=== PATIENT | female | born 1960 | race Native Hawaiian/Other Pacific Islander ===

== ENCOUNTER 2016-07-20 07:45 | Emergency (ER) | payer SELFPAY ==
[2016-07-20] MEDS ORDERED: HYDROmorphone 1 MG/ML 1 ML SYRINGE IVP STA ×2 (08:10→10:39)
[2016-07-20] MEDS ORDERED: ONDANSETRON 4 MG/2 ML VIAL IVP STA (08:11)
--- NOTE | 2016-07-20 08:13 | ED ---
General Adult HPI - General Chief complaint: Extremity Injury, Upper Stated complaint: POSS Fx LEFT ARM Time Seen by Provider: 07/20/16 07:50 Source: patient, RN notes reviewed Mode of arrival: wheelchair Limitations: no limitations - History of Present Illness Initial comments: This is a 56-year-old female who presents emergency Department complaining that she fell while feeding the birds and hurt her left elbow. She is unable to move with full range of motion. Patient denies any wrist or hand pain. Patient denies any shoulder pain. Patient denies any other site of injury. Patient states she was not short of breath or having chest pain or palpitations prior to her fall. - Related Data Home Medications Medication Instructions Recorded Confirmed Aspirin EC [Ecotrin Low Dose] 81 mg PO DAILY 07/20/16 07/20/16 Guaifen/Phenyleph/Acetaminophn 2 tab PO DAILY PRN 07/20/16 07/20/16 [Tylenol Sinus Severe Caplet] Loratadine [Claritin] 10 mg PO DAILY 07/20/16 07/20/16 Previous Rx's Medication Instructions Recorded Hydrocodone/Acetaminophen [[place] 1 each PO Q4HR PRN #20 tab 07/20/16 5-325] Ibuprofen [Motrin] 400 mg PO Q6HR PRN #20 tab 07/20/16 Allergies Allergy/AdvReac Type Severity Reaction Status Date / Time latex AdvReac Rash/Hives Verified 07/20/16 08:04 Review of Systems ROS Statement: Those systems with pertinent positive or pertinent negative responses have been documented in the HPI. ROS Other: All systems not noted in ROS Statement are negative. Past Medical History Past Medical History: Myocardial Infarction ([place]) History of Any Multi-Drug Resistant Organisms: None Reported Past Surgical History: Heart Catheterization With Stent Past Psychological History: No Psychological Hx Reported Smoking Status: Former smoker Past Alcohol Use History: Occasional Past Drug Use History: None Reported General Exam - General Exam Comments Initial Comments: GENERAL Patient is well-developed and well-nourished. Patient is in mild distress. EYES Patient's pupils are equal and round. Extraocular motion is intact SKIN Unremarkable NEURO The patient is alert and oriented 3 PYSCH Patient has normal interpersonal interactions. MUSCULOSKELETAL Patient's left elbow appears to be deformed and there is a void at the distal humerus indicating a possible dislocation or fracture dislocation Limitations: no limitations Course Vital Signs 07/20/16 07/20/16 07/20/16 07:49 09:00 09:26 Temperature 96.9 F L Pulse Rate 57 L 53 L 56 L Respiratory 20 15 18 Rate Blood Pressure 176/84 162/84 159/78 O2 Sat by Pulse 100 100 100 Oximetry 07/20/16 09:42 Temperature Pulse Rate 59 L Respiratory 18 Rate Blood Pressure 195/92 O2 Sat by Pulse 98 Oximetry Procedures - Orthopedic Joint Reduction Joint #1 Consent Obtained: written consent Time Out Performed: Yes Side: left Joint Reduction Location: elbow Shoulder Technique Used (if applicable): traction/counter-traction Technique Used: traction/counter-traction Post-Reduction Neuro Exam: intact Post-Reduction Vascular Exam: intact Post Reduction X-Ray Obtained: Yes Post Reduction X-Ray Results: reduced Splint Applied: No (Patient was given a sling) - Procedural Sedation Procedural Sedation Start Time: 09:34 Indications: fracture/dislocation reduction ASA Class: I Preparation: cardiac rehabilitation program director applied, pulse oximeter, capnometry used, supplemental O2 applied IV Etomidate Dose (mgs): 12 Complications: none Patient Tolerated Procedure: well Medical Decision Making - Medical Decision Making X-ray shows her elbow dislocation. After reduction x-ray showed elbow was back in place and a possible avulsion fracture in the soft tissue not in the joint. I put the patient has sling. Disposition Clinical Impression: Elbow dislocation Disposition: HOME SELF-CARE Condition: Good Instructions: Elbow Dislocation (ED) Prescriptions: Hydrocodone/Acetaminophen [[place] 5-325] 1 each PO Q4HR PRN #20 tab PRN Reason: Pain Ibuprofen [Motrin] 400 mg PO Q6HR PRN #20 tab PRN Reason: For pain Referrals: Lee Barrera DO [Primary Care Provider] - 1-2 days
--- NOTE | 2016-07-20 09:00 | XR ---
EXAMINATION TYPE: XR elbow limited LT DATE OF EXAM: 07/20/2016 8:56 AM COMPARISON: NONE HISTORY: Pain FINDINGS: There is a complete dislocation of the elbow with the humerus anteriorly displaced relative to the radius and ulna. Large soft tissue hematoma or edema noted. Tiny chip fracture involving the ulna not excluded. IMPRESSION: 1. Complete elbow dislocation.
[2016-07-20 09:27] VITALS: RESP 18
[2016-07-20] MEDS ORDERED: ETOMIDATE 2 MG/ML 10 ML VIAL IVP STA (09:29)
--- NOTE | 2016-07-20 10:04 | XR ---
EXAMINATION TYPE: XR elbow limited LT DATE OF EXAM: 07/20/2016 9:45 AM COMPARISON: 07/20/2016 earlier exam HISTORY: Dislocated radius and ulna TECHNIQUE: 2 views left elbow FINDINGS: There is soft tissue swelling over the elbow. There is a calcification along the medial elb ow not identified previously. Tiny avulsion may be present. Donor site is not identified. Radius and ulna align normally with the humerus. IMPRESSION: 1. Reduction of previous dislocation radius and ulna. 2. Soft tissue swelling. 3. Tiny avulsion within the more superficial soft tissue may be present. This is along the medial elb ow.
[2016-07-20 10:56] VITALS: BP 154/77; PULSE 78; TEMP 98.1
== END 2016-07-20 10:55 | disposition home or self-care (01) ==
LOC: EC 07:45
DX: S53.105A Unspecified dislocation of left ulnohumeral joint, initial encounter (principal); I25.2 Old myocardial infarction; Z95.5 Presence of coronary angioplasty implant and graft; Z79.82 Long term (current) use of aspirin; Z87.891 Personal history of nicotine dependence; Z91.040 Latex allergy status; Z79.899 Other long term (current) drug therapy; W18.39XA Other fall on same level, initial encounter; Y93.89 Activity, other specified
CPT/HCPCS: 99283; 24600; 96374; 96375; 96376; 73070; J2405; J1170

== ENCOUNTER 2020-08-17 09:42 | Inpatient (IN) | payer OTHER ==
--- NOTE | 2020-08-17 09:53 | ED ---
General Adult HPI - General Stated complaint: neuro sympstoms Time Seen by Provider: 08/17/20 09:46 Source: patient, EMS, RN notes reviewed Mode of arrival: EMS Limitations: no limitations - History of Present Illness Initial comments: Patient is a pleasant 60-year-old female presenting to the emergency Department with right-sided weakness. Last known well was 10 PM yesterday. Patient woke up around 8 AM this morning with symptoms. Patient had numbness on her right side. Patient was unable to walk. Patient had slurred speech. Patient feels her speech is getting much better at this time. Patient unclear if other symptoms have improved or not. No history of similar symptoms previously. No confusion. Patient does feel a little bit lightheaded. No headache. - Related Data Home Medications Medication Instructions Recorded Confirmed Aspirin EC [Ecotrin Low Dose] 81 mg PO DAILY 07/20/16 08/17/20 Metoprolol Tartrate [Lopressor] 25 mg PO BID 08/17/20 08/17/20 Allergies Allergy/AdvReac Type Severity Reaction Status Date / Time latex AdvReac Rash/Hives Verified 08/17/20 10:42 Review of Systems ROS Statement: Those systems with pertinent positive or pertinent negative responses have been documented in the HPI. ROS Other: All systems not noted in ROS Statement are negative. Constitutional: Denies: fever Eyes: Denies: eye pain ENT: Denies: ear pain Respiratory: Denies: cough Cardiovascular: Denies: chest pain Endocrine: Denies: fatigue Gastrointestinal: Denies: abdominal pain Genitourinary: Denies: urgency Musculoskeletal: Denies: back pain Skin: Denies: as per HPI Neurological: Reports: as per HPI, weakness, paresthesias. Denies: headache Past Medical History Past Medical History: Myocardial Infarction ([place]) History of Any Multi-Drug Resistant Organisms: None Reported Past Surgical History: Heart Catheterization With Stent Past Psychological History: No Psychological Hx Reported Past Alcohol Use History: Occasional Past Drug Use History: None Reported General Exam Limitations: no limitations General appearance: alert, in no apparent distress Head exam: Present: atraumatic Eye exam: Present: normal appearance, PERRL, EOMI. Absent: nystagmus ENT exam: Present: normal oropharynx Neck exam: Present: normal inspection Respiratory exam: Present: normal lung sounds bilaterally Cardiovascular Exam: Present: regular rate, normal rhythm GI/Abdominal exam: Present: soft. Absent: distended, tenderness Extremities exam: Present: normal inspection Neurological exam: Present: alert, oriented X3, CN II-XII intact Expanded Neurological exam: Present: protecting the airway Patient oriented to: Present: person, place, time Speech: Present: fluid speech Cranial nerves: EOM's Intact: Normal, Facial Sensation: Normal Cerebellar function: Finger to Nose: Abnormal Right Sensory exam: Upper Extremity Light Touch: Normal, Lower Extremity Light Touch: Normal Motor strength exam: RUE: 4, LUE: 5, RLE: 5, LLE: 5 Eye Response: (4) open spontaneously Motor Response: (6) obeys commands Verbal Response: (5) oriented Psychiatric exam: Present: normal affect, normal mood Skin exam: Present: normal color Course Vital Signs 08/17/20 08/17/20 08/17/20 09:50 09:58 10:15 Temperature 97.4 F L 97.4 F L 97.4 F L Pulse Rate 74 135 H 72 Respiratory 18 18 18 Rate Blood Pressure 193/95 193/95 191/95 O2 Sat by Pulse 95 96 96 Oximetry 08/17/20 10:30 Temperature 97.4 F L Pulse Rate 69 Respiratory 18 Rate Blood Pressure 181/103 O2 Sat by Pulse 96 Oximetry - Reevaluation(s) Reevaluation #1: 08/17/20 10:03 Code stroke was called. Case was discussed with Dr. Dewitt who agrees patient is not a TPA candidate. He feels patient is also not a thrombectomy candidate. EKG Findings - EKG Comments: EKG Findings:: Normal sinus rhythm 66. HI 142. QRS 94. QT 436. QTc 47. Normal axis. Normal QRS. No acute ST change. Medical Decision Making - Medical Decision Making Patient reevaluated and improved. Patient no longer has right upper extremity weakness however still has some difficulty with coordination. Patient and family updated on results and plan. Case was discussed in detail with Dr. Barrera who is familiar with his patient and will admit. Neurology will be placed on consult.BNP will be added - Lab Data Result diagrams: 08/17/20 09:55 08/17/20 09:55 Lab Results 08/17/20 08/17/20 08/17/20 Range/Units 09:47 09:55 09:55 WBC 7.3 (3.8-10.6) k/uL RBC 4.35 (3.80-5.40) m/uL Hgb 13.3 (11.4-16.0) gm/dL Hct 40.1 (34.0-46.0) % MCV 92.1 (80.0-100.0) fL MCH 30.6 (25.0-35.0) pg MCHC 33.3 (31.0-37.0) g/dL RDW 12.9 (11.5-15.5) % Plt Count 260 (150-450) k/uL MPV 8.7 Neutrophils % 76 % Lymphocytes % 16 % Monocytes % 3 % Eosinophils % 3 % Basophils % 1 % Neutrophils # 5.5 (1.3-7.7) k/uL Lymphocytes # 1.2 (1.0-4.8) k/uL Monocytes # 0.2 (0-1.0) k/uL Eosinophils # 0.2 (0-0.7) k/uL Basophils # 0.1 (0-0.2) k/uL PT 9.9 (9.0-12.0) sec INR 0.9 (<1.2) APTT 19.2 L (22.0-30.0) sec Sodium (137-145) mmol/L Potassium (3.5-5.1) mmol/L Chloride (98-107) mmol/L Carbon Dioxide (22-30) mmol/L Anion Gap mmol/L BUN (7-17) mg/dL Creatinine (0.52-1.04) mg/dL Est GFR (CKD-EPI)AfAm (>60 ml/min/1.73 sqM) Est GFR (CKD-EPI)NonAf (>60 ml/min/1.73 sqM) Glucose (74-99) mg/dL POC Glucose (mg/dL) 148 H (75-99) mg/dL POC Glu Implementation Project Manager ID Cristin Castañeda Calcium (8.4-10.2) mg/dL Total Bilirubin (0.2-1.3) mg/dL AST (14-36) U/L ALT (4-34) U/L Alkaline Phosphatase (38-126) U/L Troponin I (0.000-0.034) ng/mL NT-Pro-B Natriuret Pep pg/mL Total Protein (6.3-8.2) g/dL Albumin (3.5-5.0) g/dL 08/17/20 08/17/20 08/17/20 Range/Units 09:55 09:55 09:55 WBC (3.8-10.6) k/uL RBC (3.80-5.40) m/uL Hgb (11.4-16.0) gm/dL Hct (34.0-46.0) % MCV (80.0-100.0) fL MCH (25.0-35.0) pg MCHC (31.0-37.0) g/dL RDW (11.5-15.5) % Plt Count (150-450) k/uL MPV Neutrophils % % Lymphocytes % % Monocytes % % Eosinophils % % Basophils % % Neutrophils # (1.3-7.7) k/uL Lymphocytes # (1.0-4.8) k/uL Monocytes # (0-1.0) k/uL Eosinophils # (0-0.7) k/uL Basophils # (0-0.2) k/uL PT (9.0-12.0) sec INR (<1.2) APTT (22.0-30.0) sec Sodium 136 L (137-145) mmol/L Potassium 4.3 (3.5-5.1) mmol/L Chloride 102 (98-107) mmol/L Carbon Dioxide 24 (22-30) mmol/L Anion Gap 10 mmol/L BUN 14 (7-17) mg/dL Creatinine 0.80 (0.52-1.04) mg/dL Est GFR (CKD-EPI)AfAm >90 (>60 ml/min/1.73 sqM) Est GFR (CKD-EPI)NonAf 80 (>60 ml/min/1.73 sqM) Glucose 162 H (74-99) mg/dL POC Glucose (mg/dL) (75-99) mg/dL POC Glu Implementation Project Manager ID Calcium 9.6 (8.4-10.2) mg/dL Total Bilirubin 0.6 (0.2-1.3) mg/dL AST 32 (14-36) U/L ALT 18 (4-34) U/L Alkaline Phosphatase 72 (38-126) U/L Troponin I <0.012 (0.000-0.034) ng/mL NT-Pro-B Natriuret Pep 475 pg/mL Total Protein 8.0 (6.3-8.2) g/dL Albumin 4.5 (3.5-5.0) g/dL - Radiology Data Radiology results: report reviewed (Computed tomography scan the brain shows atrophy and chronic small vessel changes without acute process. CT angios chest shows no significant abnormality.), image reviewed (Two-view chest x-ray has some increased interstitial markings, possible edema.) Disposition Clinical Impression: Cerebrovascular accident (CVA) Disposition: ADMITTED IP TO THIS HOSP Is patient prescribed a controlled substance at d/c from ED?: No Referrals: Lee Barrera DO [Primary Care Provider] - 1-2 days Decision Time: 10:56
[2020-08-17 09:59] LABS: Glucose,Whole Blood 148 mg/dL (75-99)
[2020-08-17 10:01] LABS: Basophils # (A) 0.1 k/uL (0-0.2); Basophils % (A) 1 %; Eosinophils # (A) 0.2 k/uL (0-0.7); Eosinophils % (A) 3 %; HCT 40.1 % (34.0-46.0); HGB 13.3 gm/dL (11.4-16.0); Lymphocytes # (A) 1.2 k/uL (1.0-4.8); Lymphocytes % (A) 16 %; MCH 30.6 pg (25.0-35.0); MCHC 33.3 g/dL (31.0-37.0); MCV 92.1 fL (80.0-100.0); Mean Platelet Volume 8.7; Monocytes # (A) 0.2 k/uL (0-1.0); Monocytes % (A) 3 %; Neutrophils # (A) 5.5 k/uL (1.3-7.7); Neutrophils % (A) 76 %; Platelet Count 260 k/uL (150-450); RBC 4.35 m/uL (3.80-5.40); RDW 12.9 % (11.5-15.5); WBC 7.3 k/uL (3.8-10.6)
--- NOTE | 2020-08-17 10:16 | CT ---
EXAMINATION TYPE: CT brain wo con for TPA DATE OF EXAM: 08/17/2020 COMPARISON: None HISTORY: Rt sided numbness CT DLP: [address] of the brain was performed. The ventricles, basal cisterns and sulci overlying the cerebral convexities demonstrate mild enlargem ent. There is no evidence for intracranial hemorrhage or sulcal effacement. There is decreased attenuation about the periventricular white matter and deep white matter of both c erebral hemispheres, compatible with chronic small vessel ischemia. Differential diagnosis does inclu de demyelination. No mass effects are seen.No midline shift. Osseous calvarium is intact. If symptoms persist consider MRI. IMPRESSION: 1. Age related atrophic and chronic small vessel ischemic change without acute intracranial process s een at this time.
[2020-08-17 10:19] LABS: ALT 18 U/L (4-34); African American GFR (CKD) >90 (>60 ml/min/1.73 sqM); Albumin 4.5 g/dL (3.5-5.0); Anion Gap 10 mmol/L; Blood Urea Nitrogen 14 mg/dL (7-17); Calcium 9.6 mg/dL (8.4-10.2); Carbon Dioxide 24 mmol/L (22-30); Chloride 102 mmol/L (98-107); Glucose 162 mg/dL (74-99); Non-African American GFR(CKD) 80 (>60 ml/min/1.73 sqM); Sodium 136 mmol/L (137-145); Total Bilirubin 0.6 mg/dL (0.2-1.3)
[2020-08-17 10:22] LABS: INR 0.9 (<1.2); Potassium 4.3 mmol/L (3.5-5.1); Prothrombin Time 9.9 sec (9.0-12.0)
[2020-08-17 10:23] LABS: AST 32 U/L (14-36); Alkaline Phosphatase 72 U/L (38-126)
--- NOTE | 2020-08-17 10:23 | XR ---
EXAMINATION TYPE: XR chest 2V DATE OF EXAM: 08/17/2020 COMPARISON: none HISTORY: Shortness of breath TECHNIQUE: Frontal and lateral views of the chest are obtained. FINDINGS: Scattered senescent parenchymal changes noted. Hyperinflation compatible with COPD. there is pulmonary venous congestion and interstitial edema noted. No evidence for focal consolidatio n. Heart size is stable. Mediastinal structures are stable and grossly unremarkable. No evidence for hilar prominence. Degenerative changes dorsal spine. IMPRESSION: 1. there is pulmonary venous congestion and interstitial edema noted.
[2020-08-17 10:29] LABS: Partial Thromboplastin Time 19.2 sec (22.0-30.0)
--- NOTE | 2020-08-17 10:36 | CT ---
EXAMINATION TYPE: CT angio head neck DATE OF EXAM: 08/17/2020 COMPARISON: none HISTORY: right side numbness CT DLP: 351.2 mGycm CONTRAST: Performed with IV Contrast, patient injected with 65 mL of Isovue 370. Combination Contrast CTA cervical carotids and [place] CTA cervical carotids with 3-D recons truction Contrast CTA of the cervical carotids was performed 3-D reconstruction imaging obtained at a separate workstation. Right carotid system: Mild plaque is seen of the right common carotid artery. There is mild plaque a lso noted at the carotid bulb and proximal ICA. No significant diameter reduction. ECA is patent. Right vertebral artery appears unremarkable. Left carotid system: Mild plaque is seen of the left common carotid artery. There is mild plaque als o noted at the carotid bulb and proximal ICA. Estimated diameter reduction of 50%. ECA is patent. L eft vertebral artery appears unremarkable. IMPRESSION: 1. No hemodynamically significant stenosis identified. CTA [place] with 3-D reconstruction Contrast CTA of the [place] was performed 3-D reconstruction imaging obtained at a separate workstation. Vertebrobasilar system as well as intracranial portions of the internal carotid arteries and their ma lucius tributaries are patent. I do not see evidence for sizable aneurysm or vascular malformation. Pl ease note MRI provides greater sensitivity and specificity. Visualized brain appears grossly unremar kable. IMPRESSION: 1. No significant abnormality.
[2020-08-17] MEDS ORDERED: ASPIRIN 325 MG TAB PO STA (10:56)
[2020-08-17] MEDS ORDERED: ONDANSETRON 4 MG/2 ML VIAL IVP STA (11:01)
[2020-08-17] MEDS: SODIUM CHLORIDE 0.9% 1,000 ML IV SCH ×2 (12:14→21:14)
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
[2020-08-17] MEDS: CLOPIDOGREL 75 MG TAB PO SCH (17:19)
--- NOTE | 2020-08-17 19:44 | MR ---
MRI OF THE BRAIN WO History: Acute stroke with left-sided weakness. COMPARISON: Same-day CT. TECHNIQUE: Multiplanar multisequence MR imaging of the brain was obtained without the use of IV cont rast. FINDINGS: There is moderate area of restricted diffusion in the right cerebellar.No acute intracranial hemorrha ge or abnormal extra-axial fluid collection are noted.There is no midline shift or mass effect. There is moderate white matter T2 FLAIR hyperintensities, in keeping with chronic microvascular ischemic c hanges. Visualized vascular flow voids are unremarkable. Visualized paranasal sinuses and mastoid air cells are patent and aerated. IMPRESSION: Acute/subacute right cerebellar ischemic infarct. Chronic microvascular ischemic changes. I was unable to reach caring team by phone at the time of dictation. However information will be rela jw to team by the technologist.
[2020-08-17] MEDS: METOPROLOL TARTRATE 25 MG TAB PO SCH (21:14)
[2020-08-18 02:37] LABS: Cholesterol 289 mg/dL (<200); HDL Cholesterol 74 mg/dL (40-60); LDL Cholesterol,Calculated 143 mg/dL (0-99); Triglycerides 360 mg/dL (<150)
[2020-08-18] MEDS ORDERED: ONDANSETRON 4 MG/2 ML VIAL IVP PRN (06:29)
--- NOTE | 2020-08-18 07:30 | ECHOF ---
Referral Reason:Thrombus MEASUREMENTS -------- HEIGHT: 162.6 cm WEIGHT: 68.0 kg BP: 197/98 RVIDd: 2.7 cm (< 3.3) IVSd: 1.5 cm (0.6 - 1.1) LVIDd: 4.6 cm (3.9 - 5.3) LVPWd: 1.2 cm (0.6 - 1.1) IVSs: 1.7 cm LVIDs: 2.8 cm LVPWs: 1.9 cm LAESV Index (A-L): 52.90 ml/m Ao Diam: 2.2 cm (2.0 - 3.7) AV Cusp: 1.6 cm (1.5 - 2.6) MV EXCURSION: 17.874 mm (> 18.000) MV EF SLOPE: 128 mm/s (70 - 150) EPSS: 0.2 cm MV E Fabio: 1.47 m/s MV DecT: 153 ms MV A Fabio: 0.77 m/s MV E/A Ratio: 1.90 RAP: 20.00 mmHg RVSP: 70.87 mmHg FINDINGS -------- Sinus rhythm. This was a technically adequate study. The left ventricular size is normal. There is moderate concentric left ventricular hypertrophy. O verall left ventricular systolic function is normal with, an EF between 55 - 60 %. The right ventricle is normal in size. LA is severely dilated >40 ml/m2 The right atrial size is normal. Interatrial and interventricular septum intact. The aortic valve is trileaflet, and appears structurally normal. No aortic stenosis or regurgitation. The mitral valve leaflets are mildly thickened. Mgenzrhr-kd-xvfelw mitral regurgitation is present. Moderate to severe tricuspid regurgitation present. There is severe pulmonary hypertension. The r ight ventricular systolic pressure, as measured by Doppler, is 70.87mmHg. There is no pulmonic regurgitation present. The aortic root size is normal. The inferior vena cava is dilated with poor inspiratory collapse which is consistent with estimated r ight atrial pressure of 20 mmHg. There is no pericardial effusion. CONCLUSIONS -------- 1. There is moderate concentric left ventricular hypertrophy. 2. Overall left ventricular systolic function is normal with, an EF between 55 - 60 %. 3. LA is severely dilated >40 ml/m2 4. The aortic valve is trileaflet, and appears structurally normal. No aortic stenosis or regurgitati on. 5. Qleqzdvg-ks-tjxyak mitral regurgitation is present. 6. Moderate to severe tricuspid regurgitation present. 7. There is severe pulmonary hypertension. 8. The inferior vena cava is dilated with poor inspiratory collapse which is consistent with estimate d right atrial pressure of 20 mmHg. ASBESTOS SHINGLE ROOFER: Amanda Mabry RDCS
[2020-08-18] MEDS: SODIUM CHLORIDE 0.9% 1,000 ML IV SCH ×2 (07:49→17:18)
[2020-08-18] MEDS: ASPIRIN 325 MG TAB PO SCH (09:40)
[2020-08-18] MEDS: CLOPIDOGREL 75 MG TAB PO SCH (09:40)
[2020-08-18] MEDS: METOPROLOL TARTRATE 25 MG TAB PO SCH ×2 (09:40→18:59)
[2020-08-18] MEDS: PANTOPRAZOLE 40 MG/10 ML VIAL IVP SCH (10:43)
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
[2020-08-18] MEDS: amLODIPine 5 MG TAB PO SCH (12:08)
--- NOTE | 2020-08-18 12:09 | CONS ---
INÉS Frias is a 60-year-old lady with history of coronary artery disease, status post prior angioplasty in the setting of a myocardial infarction 9 years ago who does not see a sand shoveler regularly, comes into the hospital having had CVA. She states that she developed right-sided weakness around 9:30 yesterday. She also had slurred speech and had ability to walk. She came into hospital and was admitted to hospital for the same and has gradually gotten better. The speech is better. The weakness has improved. She had a CTA of the head and neck that is negative for carotid stenosis. Had a CT scan of the brain that did not reveal any acute intracranial processes. Her EKG shows that she is in sinus rhythm. Coronavirus is negative. Blood pressure is slightly poorly controlled. I have been consulted to perform a transesophageal echo. I discuss risks, benefits for SAM. She understands and is in agreement with the plans. PAST MEDICAL HISTORY: Significant for coronary artery disease, status post angioplasty. MEDICATIONS: Medications include aspirin and metoprolol 25 b.i.d. ALLERGIES: Allergic to LATEX. FAMILY HISTORY: Significant for coronary artery disease and valvular heart disease. SOCIAL HISTORY: Negative for smoking, EtOH abuse, or drug abuse. REVIEW OF SYSTEMS: HEENT is unremarkable. CARDIAC: As described above. RESPIRATORY: As described above. GI: Negative. GENITOURINARY: Negative. ALLERGY/IMMUNOLOGY: Negative. SKIN: Negative. MUSCULOSKELETAL: Significant for arthritis. PSYCHOSOCIAL: Negative. ENDOCRINE: Negative. DERM: Negative. CONSTITUTIONAL: Negative. ONCOLOGICAL: Negative. BRAKE REPAIRER HYDRAULIC: Significant for right-sided weakness. Rest of the system review is not relevant. PHYSICAL EXAMINATION: On exam, afebrile, heart rate is 67 beats per minute, blood pressure is 160/86, respiratory rate is 18, O2 saturation is 97% on room air. There is no jugular venous distention. Carotid upstroke is normal. There is no bruit. Chest exam reveals good air entry bilaterally. Heart exam reveals first and second heart sounds. No gallop. No murmur. No rub. Abdomen is soft, nontender. Examination of extremities did not reveal any edema. Peripheral pulses are felt. BRAKE REPAIRER HYDRAULIC exam shows mild right-sided weakness. An echocardiogram on this admission revealed normal LV systolic function with an ejection fraction of 55% to 60%, moderate to severe mitral regurgitation, moderate to severe tricuspid regurgitation with pulmonary hypertension. Lipid profile shows a total cholesterol of 289, LDL is 143, HDL is 74. ASSESSMENT: 1. Cerebrovascular accident, rule out cardiac source for thromboembolic phenomenon. 2. Coronary artery disease, status post angioplasty. 3. Pulmonary hypertension. PLAN: I am going to perform a transesophageal echo tomorrow to rule out cardiac source of thromboembolic phenomenon. The patient had an MRI that shows right cerebellar infarct. The patient has known CAD, but is currently free of any cardiac symptoms. The exact etiology for pulmonary hypertension is unclear. She did not have any respiratory symptoms prior to this. I will see what I find on the SAM and if necessary I will repeat RV systolic pressures on her before investigating the pulmonary hypertension further. MMODL / IJN: [id number] /
[2020-08-18 12:14] LABS: Glucose,Whole Blood 133 mg/dL (75-99)
[2020-08-18] MEDS: INSULIN ASPART (NovoLOG) 100 UNIT/ML VIAL SQ SCH ×3 (12:20→21:24)
[2020-08-18 13:38] LABS: Hemoglobin A1C 5.6 % (4.0-6.0)
[2020-08-18 17:04] LABS: Glucose,Whole Blood 106 mg/dL (75-99)
[2020-08-18] MEDS ORDERED: METOPROLOL TARTRATE 50 MG TAB PO STA (17:42)
--- NOTE | 2020-08-18 18:26 | P.PN ---
Subjective Progress Note Date: 08/18/20 Patient states she is feeling much better. Denies any headache. Right-sided incoordination has improved. Denies double vision, loss of vision. Patient's significant other was also present, who feels patient is doing better. Speech has improved. Speech therapy has cleared the patient. Objective - Vital Signs Vital signs: Vital Signs Temp 97.6 F 08/18/20 16:00 Pulse 70 08/18/20 16:00 Resp 16 08/18/20 16:00 BP 167/80 08/18/20 16:00 Pulse Ox 98 08/18/20 16:00 Intake & Output 08/17/20 08/18/20 08/18/20 18:59 06:59 18:59 Intake Total 0 1795 Output Total 480 Balance 0 -480 1795 Weight 68.039 kg 72 kg Intake: Intake, IV Titration 1600 Amount Sodium Chloride 0.9% 1, 1600 000 ml @ 100 mls/hr IV . Q10H VEE Rx#:[id number] Oral 0 195 Output: Urine 480 Other: Voiding Method Bedside Commode # Voids 1 1 - Exam Patient's mental status, speech and language functions are normal. No obvious dysarthria. Cranial nerves are normal. Patient has mild right pronation. Patient is ataxic for culrpy-ks-[id number] on the right, but no ataxia for bspy-wr-ekft testing. Sensations are equal. - Labs CBC & Chem 7: 08/17/20 09:55 08/17/20 09:55 Labs: Abnormal Lab Results - Last 24 Hours (Table) 08/17/20 08/18/20 08/18/20 Range/Units 09:55 12:13 17:02 POC Glucose (mg/dL) 133 H 106 H (75-99) mg/dL Triglycerides 360 H (<150) mg/dL Cholesterol 289 H (<200) mg/dL LDL Cholesterol, Calc 143 H (0-99) mg/dL HDL Cholesterol 74 H (40-60) mg/dL Assessment and Plan Assessment: * Acute right cerebellar ischemic stroke. Rule out embolic source. * Hypertension * Left ICA stenosis 50% per CTA * Hyperlipidemia Plan: * Patient is improving gradually as compared to yesterday. * MRI of the brain revealed acute to subacute right cerebellar ischemic infarct. Chronic microvascular ischemic changes. * 2-D echo showed EF 55-60%. Left atrium is severely dilated. Moderate to severe MR, moderate to severe TR. Severe pulmonary hypertension. Patient will undergo SAM for further evaluation of cardioembolic source. * Continue dual antiplatelet medications for now. * Fasting a.m. lipid panel with cholesterol 289, LDL 143, HDL 74 and triglycerides 360. Start Lipitor 40 mg daily. * Hemoglobin A1c 5.6. * Optimize control of blood pressure at this time. * Telemetry monitoring so far showing sinus rhythm with no other arrhythmia.
[2020-08-18] MEDS: DILTIAZEM 125 MG in SODIUM CHLORIDE 0.9% 100 ML IV SCH (20:44)
[2020-08-18] MEDS: ATORVASTATIN 40 MG TAB PO SCH (20:44)
[2020-08-18 21:01] LABS: Glucose,Whole Blood 127 mg/dL (75-99)
[2020-08-19 06:10] LABS: Glucose,Whole Blood 109 mg/dL (75-99)
[2020-08-19] MEDS: SODIUM CHLORIDE 0.9% 1,000 ML IV SCH ×2 (06:47→15:48)
[2020-08-19] MEDS: INSULIN ASPART (NovoLOG) 100 UNIT/ML VIAL SQ SCH ×4 (06:47→19:54)
[2020-08-19] MEDS: amLODIPine 5 MG TAB PO SCH (07:59)
[2020-08-19] MEDS: METOPROLOL TARTRATE 25 MG TAB PO SCH ×2 (07:59→19:52)
[2020-08-19] MEDS: ASPIRIN 325 MG TAB PO SCH (07:59)
[2020-08-19] MEDS: PANTOPRAZOLE 40 MG/10 ML VIAL IVP SCH (07:59)
[2020-08-19] MEDS: CLOPIDOGREL 75 MG TAB PO SCH (08:00)
[2020-08-19] MEDS ORDERED: HEPARIN SODIUM,PORCINE 5,000 UNIT/ML 1 ML VIAL IV PRN (08:20)
[2020-08-19] MEDS ORDERED: HEPARIN SODIUM,PORCINE 5,000 UNIT/ML 1 ML VIAL IV ONE (08:20)
[2020-08-19] MEDS ORDERED: METOPROLOL TARTRATE 25 MG TAB PO STA (09:26)
[2020-08-19] MEDS: HEPARIN SOD,PORK IN 0.45% NACL 25,000 UNIT in 0.45% NACL 1 250ML.BAG IV SCH (09:49)
[2020-08-19 10:37] LABS: Basophils % (A) 1 %; Eosinophils # (A) 0.1 k/uL (0-0.7); Eosinophils % (A) 1 %; HCT 40.9 % (34.0-46.0); HGB 13.1 gm/dL (11.4-16.0); Lymphocytes # (A) 1.1 k/uL (1.0-4.8); Lymphocytes % (A) 19 %; MCH 29.9 pg (25.0-35.0); MCV 93.6 fL (80.0-100.0); Mean Platelet Volume 9.3; Monocytes # (A) 0.3 k/uL (0-1.0); Monocytes % (A) 5 %; Neutrophils # (A) 4.3 k/uL (1.3-7.7); Neutrophils % (A) 72 %; Platelet Count 234 k/uL (150-450); RBC 4.37 m/uL (3.80-5.40); RDW 13.4 % (11.5-15.5)
[2020-08-19 10:44] LABS: INR 0.9 (<1.2); Partial Thromboplastin Time 22.4 sec (22.0-30.0); Prothrombin Time 10.1 sec (9.0-12.0)
[2020-08-19 10:49] LABS: African American GFR (CKD) >90 (>60 ml/min/1.73 sqM); Anion Gap 8 mmol/L; Blood Urea Nitrogen 6 mg/dL (7-17); Calcium 9.4 mg/dL (8.4-10.2); Carbon Dioxide 30 mmol/L (22-30); Chloride 98 mmol/L (98-107); Glucose 114 mg/dL (74-99); Non-African American GFR(CKD) 85 (>60 ml/min/1.73 sqM); Sodium 136 mmol/L (137-145)
[2020-08-19] MEDS: DILTIAZEM 125 MG in SODIUM CHLORIDE 0.9% 100 ML IV SCH (11:03)
[2020-08-19 11:59] LABS: Potassium 3.5 mmol/L (3.5-5.1)
[2020-08-19 12:03] LABS: Glucose,Whole Blood 88 mg/dL (75-99)
--- NOTE | 2020-08-19 14:14 | P.PN ---
Subjective Progress Note Date: 08/19/20 Chief Complaint: Slurred speech, right-sided weakness This is a 60-year-old female with past medical history of CAD with cardiac stents, [place], hypertension, osteoarthritis, presented to the ER with slurred speech, right-sided weakness involving upper extremity more than lower extremity with right facial droop, tongue numbness, dizziness/head spinning/vertigo accompanied by nausea and vomiting upon awakening. Denies abdominal pain . Denies incontinence .On arrival to the ER, patient had uncontrolled blood pressure with systolic 193/95. Brain CT reported chronic small vessel ischemic change with no acute intracranial process, CTA of head neck reported no hemodynamic significant stenosis identified ( Left ICA 50% stenosis), no significant abnormality, EKG reported normal sinus rhythm troponin negative, triglycerides 360, cholesterol 289, LDL 143, HDL 74, echo reported moderate concentric left ventricular hypertrophy, normal LV function with EF 55-60%, severely dilated LA, moderate to severe mitral regurgitation, moderate to severe tricuspid regurgitation, severe pulmonary hypertension, brain MRI reported acute/subacute right cerebellar ischemic infarct, no acute intracranial hemorrhage, no midline shift, no mass, chronic microvascular ischemic changes. Afebrile, unremarkable hematology panel, a PTT 19.2, PT/INR within normal limits, chemistry unremarkable with the exception of mildly decreased sodium 136, glucose 162. Wolfe virus not detected. Denies chest pain palpitations or shortness of breath.Received aspirin in the ER, Patient was beyond the window fo r TPA treatment. Reports her speech and right lower extremity weakness improving. 08/19/2020 maintained on dual antiplatelet tx with both aspirin and Plavix, symptoms improving. Reports right leg appears a "little delayed" when preparing to walk, right hand dexterity a little slow, noted with texting. Yesterday afternoon, developed symptomatic atrial fibrillation with fast ventricular rate heart rate, up into the 130s, placed on Cardizem drip. Patient reported palpitations, states she had this sensation previously. SAM canceled per cardiology. Objective - Vital Signs Vital signs: Vital Signs Temp 97.4 F L 08/19/20 07:58 Pulse 118 H 08/19/20 07:58 Resp 16 08/19/20 07:58 BP 146/82 08/19/20 07:58 Pulse Ox 97 08/19/20 07:58 Intake & Output 08/18/20 08/19/20 08/19/20 18:59 06:59 18:59 Intake Total 1795 186.583 Balance 1795 186.583 Weight 71 kg Intake: Intake, IV Titration 1600 71.583 Amount Diltiazem 125 mg In 71.583 Sodium Chloride 0.9% 100 ml @ 5 MG/HR 5 mls/hr IV .Q24H VEE Rx#:[id number] Sodium Chloride 0.9% 1, 1600 000 ml @ 100 mls/hr IV . Q10H VEE Rx#:[id number] Oral 195 115 Other: Voiding Method Bedside Commode # Voids 1 1 # Bowel Movements 0 - Exam PHYSICAL EXAM: VITAL SIGNS: [As above] GENERAL: Sitting up in bed, no acute distress HEENT: Conjunctivae normal. eyes normal. Speech fluent, appropriate. NECK: No JVD. No thyroid enlargement. No LNs CARDIOVASCULAR: S1, S2 regular.. No murmur RESPIRATION: Breath sounds diminished in the bases. No rhonchi or crackles. No bronchial breathing. ABDOMEN: Soft, nontender . No guarding. no masses palpable. No ascites, No hepatosplenomegaly.Bowel sounds heard. LEGS: No edema. no swelling PSYCHIATRY: Alert and oriented X3, mood and affect normal. NERVOUS SYSTEM: Cranial N 2-12 grossly normal. Moves all 4 limbs. right finger to nose testing remains ataxic ,No focal deficits. Strength and sensation grossly intact. Skin: Warm and dry, no rash Lymphatic system. No LN neck axilla. 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 fib with fast ventricular rate Vertigo Hypertension Hyperlipidemia CAD with history of [place] and cardiac stents Left ICA stenosis 50% Moderate concentric left ventricular hypertrophy, EF 55-60% Severely dilated LA Moderate to severe mitral regurgitation Moderate to severe tricuspid regurgitation Severe pulmonary hypertension Osteoarthritis Plan: Continue on current medication regime ,monitoring and symptomatic treatment. SAM /Cardiology discussing with neurology switching aspirin, Plavix, to heparin drip. Antiarrhythmics as per cardiology. Continue on statin. PT/OT.Follow closely with neurology. Discharge planning in progress possibly for tomorrow, pending final DC recommendations and clearance from both cardiology and neurology. The impression and plan of care has been dictated as directed. : I performed a history and examination of this patient, discussed the same with the dictator. I agree with the dictator's note ,documented as a scribe. Any additional findings or plans will be noted.
--- NOTE | 2020-08-19 15:12 | P.PN ---
Subjective Progress Note Date: 08/19/20 HISTORY OF PRESENT ILLNESS: 60-year-old female admitted to the hospital secondary to CVA. Patient was scheduled for SAM today. However, patient went into A. fib with RVR yesterday. Patient does not have a history of atrial fibrillation. She was started on IV Cardizem. Patient's heart rate remains uncontrolled this morning in the 120s. She denies chest pain or pressure. She denies shortness of breath. Echocardiogram completed revealing ejection fraction 55-60%, moderate to severe mitral regurgitation, moderate to severe tricuspid regurgitation, and severe pulmonary hypertension. PHYSICAL EXAM: VITAL SIGNS: Reviewed. GENERAL: Well-developed in no acute distress. NECK: Supple. No JVD or thyromegaly LUNGS: Respirations even and unlabored. Lungs essentially clear to auscultation bilaterally. HEART: Tachycardic. Irregular rate and rhythm. S1 and S2 heard. EXTREMITIES: No clubbing or cyanosis. Peripheral pulses intact. No lower extremity edema ASSESSMENT: Acute CVA Paroxysmal atrial fibrillation with RVR Coronary artery disease with previous PCI Valvular heart disease Severe pulmonary retention PLAN: Increase metoprolol to 75 mg twice a day Wean off Cardizem drip Continue telemetry monitoring Case discussed with neurology. Okay to discontinue Plavix and begin anticoagulation. Will begin IV heparin Notified by case management the patient does not have insurance and co-pay for [employer] will be $500. Will begin Coumadin with pharmacy to dose. Continue IV heparin until INR therapeutic Further recommendations pending patient's course Nurse practitioner note has been reviewed by physician. Signing provider agrees with the documented findings, assessment, and plan of care. Objective - Vital Signs Vital signs: Vital Signs Temp 97.4 F L 08/19/20 07:58 Pulse 81 08/19/20 12:00 Resp 16 08/19/20 12:00 BP 147/89 08/19/20 12:00 Pulse Ox 98 08/19/20 12:00 Intake & Output 08/18/20 08/19/20 08/19/20 18:59 06:59 18:59 Intake Total 1795 186.583 Balance 1795 186.583 Weight 71 kg Intake: Intake, IV Titration 1600 71.583 Amount Diltiazem 125 mg In 71.583 Sodium Chloride 0.9% 100 ml @ 5 MG/HR 5 mls/hr IV .Q24H VEE Rx#:[id number] Sodium Chloride 0.9% 1, 1600 000 ml @ 100 mls/hr IV . Q10H VEE Rx#:[id number] Oral 195 115 Other: Voiding Method Bedside Commode # Voids 1 1 # Bowel Movements 0 - Labs CBC & Chem 7: 08/19/20 09:17 08/19/20 09:17 Labs: Abnormal Lab Results - Last 24 Hours (Table) 08/18/20 08/18/20 08/19/20 Range/Units 17:02 20:58 06:03 Sodium (137-145) mmol/L BUN (7-17) mg/dL Glucose (74-99) mg/dL POC Glucose (mg/dL) 106 H 127 H 109 H (75-99) mg/dL 08/19/20 Range/Units 09:17 Sodium 136 L (137-145) mmol/L BUN 6 L (7-17) mg/dL Glucose 114 H (74-99) mg/dL POC Glucose (mg/dL) (75-99) mg/dL
--- NOTE | 2020-08-19 17:44 | P.PN ---
Subjective Progress Note Date: 08/19/20 Patient appears much better, even better than yesterday. Patient is sitting on the side of the bed, putting her makeup on. Patient's significant other was also present. Patient states that she is walking better, although using the walker. She still has mild slurred speech. No symptoms with the vision, or left side. Still some incoordination with the right arm. Speech therapy has cleared the patient for swallow, although patient would need speech therapy twice a week. Objective - Vital Signs Vital signs: Vital Signs Temp 97.3 F L 08/19/20 15:53 Pulse 109 H 08/19/20 15:53 Resp 16 08/19/20 15:53 BP 179/102 08/19/20 15:53 Pulse Ox 96 08/19/20 15:53 Intake & Output 08/18/20 08/19/20 08/19/20 18:59 06:59 18:59 Intake Total 1795 426.583 Balance 1795 426.583 Weight 71 kg Intake: Intake, IV Titration 1600 71.583 Amount Diltiazem 125 mg In 71.583 Sodium Chloride 0.9% 100 ml @ 5 MG/HR 5 mls/hr IV .Q24H VEE Rx#:[id number] Sodium Chloride 0.9% 1, 1600 000 ml @ 100 mls/hr IV . Q10H VEE Rx#:[id number] Oral 195 355 Other: Voiding Method Bedside Commode # Voids 1 1 # Bowel Movements 0 - Exam Patient's mental status is normal. Patient has mild dysarthria, which was also observed yesterday as well, although in the note states "No obvious dysarthria", (need correction). Cranial nerves are normal. Patient has mild right pronation. Patient is ataxic for [id number] on the right, but no ataxia for nvyy-kh-oorg testing. Sensations are equal. - Labs CBC & Chem 7: 08/19/20 09:17 08/19/20 09:17 Labs: Abnormal Lab Results - Last 24 Hours (Table) 08/18/20 08/19/20 08/19/20 Range/Units 20:58 06:03 09:17 APTT (22.0-30.0) sec Sodium 136 L (137-145) mmol/L BUN 6 L (7-17) mg/dL Glucose 114 H (74-99) mg/dL POC Glucose (mg/dL) 127 H 109 H (75-99) mg/dL 08/19/20 Range/Units 15:30 APTT 54.3 H (22.0-30.0) sec Sodium (137-145) mmol/L BUN (7-17) mg/dL Glucose (74-99) mg/dL POC Glucose (mg/dL) (75-99) mg/dL Assessment and Plan Assessment: * Acute right cerebellar ischemic stroke. Most likely cardio embolic source. * Patient developed atrial fibrillation last night. * Hypertension * Left ICA stenosis 50% per CTA * Hyperlipidemia Plan: * Patient is improving gradually as compared to yesterday. Still has some dysarthria, and ataxia for ahlmyf-zy-xmcj testing on the right. * MRI of the brain revealed acute to subacute right cerebellar ischemic infarct. Chronic microvascular ischemic changes. * 2-D echo showed EF 55-60%. Left atrium is severely dilated. Moderate to severe MR, moderate to severe TR. Severe pulmonary hypertension. As patient has developed new onset atrial fibrillation overnight, therefore SAM was canceled. I'm not sure if SAM is still indicated to evaluate for valvular abnormalities noted above in the transthoracic echocardiogram. * Plavix discontinued, patient started on heparin IV. PTT is 54.3. Patient pro bably will be started on oral anticoagulants from the morning. * Fasting a.m. lipid panel with cholesterol 289, LDL 143, HDL 74 and triglycerides 360. Start Lipitor 40 mg daily. * Hemoglobin A1c 5.6. * Optimize control of blood pressure at this time.
[2020-08-19] MEDS ORDERED: WARFARIN 5 MG TAB PO ONE (18:00)
[2020-08-19] MEDS: ATORVASTATIN 40 MG TAB PO SCH (19:51)
[2020-08-20] MEDS: SODIUM CHLORIDE 0.9% 1,000 ML IV SCH ×3 (02:18→21:16)
[2020-08-20 04:33] LABS: Basophils # (A) 0.1 k/uL (0-0.2); Basophils % (A) 1 %; Eosinophils # (A) 0.2 k/uL (0-0.7); Eosinophils % (A) 3 %; HCT 34.2 % (34.0-46.0); HGB 11.2 gm/dL (11.4-16.0); Lymphocytes # (A) 1.2 k/uL (1.0-4.8); Lymphocytes % (A) 20 %; MCH 30.8 pg (25.0-35.0); MCHC 32.7 g/dL (31.0-37.0); MCV 94.2 fL (80.0-100.0); Mean Platelet Volume 8.9; Monocytes # (A) 0.3 k/uL (0-1.0); Monocytes % (A) 5 %; Neutrophils % (A) 70 %; Platelet Count 211 k/uL (150-450); RBC 3.63 m/uL (3.80-5.40); WBC 5.7 k/uL (3.8-10.6)
[2020-08-20 04:59] LABS: INR 1.1 (<1.2); Partial Thromboplastin Time 87.1 sec (22.0-30.0); Prothrombin Time 11.2 sec (9.0-12.0)
[2020-08-20] MEDS: INSULIN ASPART (NovoLOG) 100 UNIT/ML VIAL SQ SCH ×4 (06:13→19:31)
[2020-08-20] MEDS: HEPARIN SOD,PORK IN 0.45% NACL 25,000 UNIT in 0.45% NACL 1 250ML.BAG IV SCH (09:18)
[2020-08-20] MEDS: ASPIRIN 325 MG TAB PO SCH (09:21)
[2020-08-20] MEDS: amLODIPine 5 MG TAB PO SCH (09:21)
[2020-08-20] MEDS: METOPROLOL TARTRATE 25 MG TAB PO SCH ×2 (09:22→21:04)
[2020-08-20] MEDS: PANTOPRAZOLE 40 MG/10 ML VIAL IVP SCH (09:22)
--- NOTE | 2020-08-20 12:07 | P.PN ---
Subjective Progress Note Date: 08/20/20 HISTORY OF PRESENT ILLNESS: 08/19/2020 60-year-old female admitted to the hospital secondary to CVA. Patient was scheduled for SAM today. However, patient went into A. fib with RVR yesterday. Patient does not have a history of atrial fibrillation. She was started on IV Cardizem. Patient's heart rate remains uncontrolled this morning in the 120s. She denies chest pain or pressure. She denies shortness of breath. Echocardiogram completed revealing ejection fraction 55-60%, moderate to severe mitral regurgitation, moderate to severe tricuspid regurgitation, and severe pul monary hypertension. 08/20/2020 Patient examined this morning at the bedside. Patient has converted to sinus rhythm. Heart rate in the 70s. Blood pressure 134/74. She denies chest pain or pressure. Denies shortness of breath. She remains on IV heparin. She was started on Coumadin yesterday. INR 1.1 today. PHYSICAL EXAM: VITAL SIGNS: Reviewed. GENERAL: Well-developed in no acute distress. NECK: Supple. No JVD or thyromegaly LUNGS: Respirations even and unlabored. Lungs essentially clear to auscultation bilaterally. HEART: Regular rate and rhythm. S1 and S2 heard. EXTREMITIES: No clubbing or cyanosis. Peripheral pulses intact. No lower extremity edema ASSESSMENT: Acute CVA Paroxysmal atrial fibrillation with RVR, currently maintaining sinus mechanism Coronary artery disease with previous PCI Valvular heart disease Severe pulmonary retention PLAN: Continue current cardiac medications Continue Coumadin. Monitor INR. Continue IV heparin until INR therapeutic Patient may be discharged home today from a cardiac perspective. Recommend bridging with Lovenox at discharge. Nurse practitioner note has been reviewed by physician. Signing provider agrees with the documented findings, assessment, and plan of care. Objective - Vital Signs Vital signs: Vital Signs Temp 97.7 F 08/20/20 10:00 Pulse 71 08/20/20 10:00 Resp 16 08/20/20 10:00 BP 134/74 08/20/20 10:00 Pulse Ox 98 08/20/20 10:00 Intake & Output 08/19/20 08/20/20 08/20/20 18:59 06:59 18:59 Intake Total 1026.583 175.181 276.494 Balance 1026.583 175.181 276.494 Weight 65.5 kg Intake: Intake, IV Titration 71.583 175.181 36.494 Amount Diltiazem 125 mg In 71.583 Sodium Chloride 0.9% 100 ml @ 5 MG/HR 5 mls/hr IV .Q24H VEE Rx#:[id number] Heparin Sod,Pork in 0.45% 175.181 36.494 NaCl 25,000 unit In 0.45 % NaCl 1 250ml.bag @ 12 UNITS/KG/HR 8.52 mls/hr IV .Q24H VEE Rx#: [id number] Oral 955 240 Other: Voiding Method Bedside Commode # Voids 2 2 1 # Bowel Movements 0 - Labs CBC & Chem 7: 08/20/20 03:50 08/19/20 09:17 Labs: Abnormal Lab Results - Last 24 Hours (Table) 08/19/20 08/19/20 08/20/20 Range/Units 15:30 19:01 03:50 RBC 3.63 L (3.80-5.40) m/uL Hgb 11.2 L (11.4-16.0) gm/dL APTT 54.3 H 43.4 H (22.0-30.0) sec 08/20/20 Range/Units 03:50 RBC (3.80-5.40) m/uL Hgb (11.4-16.0) gm/dL APTT 87.1 H (22.0-30.0) sec
--- NOTE | 2020-08-20 13:20 | P.PN ---
Subjective Progress Note Date: 08/20/20 Chief Complaint: Slurred speech, right-sided weakness This is a 60-year-old female with past medical history of CAD with cardiac stents, ND, hypertension, osteoarthritis, presented to the ER with slurred speech, right-sided weakness involving upper extremity more than lower extremity with right facial droop, tongue numbness, dizziness/head spinning/vertigo accompanied by nausea and vomiting upon awakening. Denies abdominal pain . Denies incontinence .On arrival to the ER, patient had uncontrolled blood pressure with systolic 193/95. Brain CT reported chronic small vessel ischemic change with no acute intracranial process, CTA of head neck reported no hemodynamic significant stenosis identified ( Left ICA 50% stenosis), no significant abnormality, EKG reported normal sinus rhythm troponin negative, triglycerides 360, cholesterol 289, LDL 143, HDL 74, echo reported moderate concentric left ventricular hypertrophy, normal LV function with EF 55-60%, severely dilated LA, moderate to severe mitral regurgitation, moderate to severe tricuspid regurgitation, severe pulmonary hypertension, brain MRI reported acute/subacute right cerebellar ischemic infarct, no acute intracranial hemorrhage, no midline shift, no mass, chronic microvascular ischemic changes. Afebrile, unremarkable hematology panel, a PTT 19.2, PT/INR within normal limits, chemistry unremarkable with the exception of mildly decreased sodium 136, glucose 162. Wolfe virus not detected. Denies chest pain palpitations or shortness of breath.Received aspirin in the ER, Patient was beyond the window fo r TPA treatment. Reports her speech and right lower extremity weakness improving. 08/19/2020 maintained on dual antiplatelet tx with both aspirin and Plavix, symptoms improving. Reports right leg appears a "little delayed" when preparing to walk, right hand dexterity a little slow, noted with texting. Yesterday afternoon, developed symptomatic atrial fibrillation with fast ventricular rate heart rate, up into the 130s, placed on Cardizem drip. Patient reported palpitations, states she had this sensation previously. SAM canceled per cardiology. 08/20/2020 Converted to sinus rhythm at 2134 yesterday. Telemetry sinus rhythm with occasional PVCs, minimal ectopy. Case management/social work assisting patient with obtaining Medicaid/Medicare as patient currently has no insurance. Continues to improve. Working with speech therapy. Anticoagulated on heparin drip. Ambulating with walker as right leg still feels delayed despite positive motor strength. Denies chest pain, palpitations or shortness of breath. Objective - Vital Signs Vital signs: Vital Signs Temp 97.6 F 08/20/20 04:00 Pulse 79 08/20/20 04:00 Resp 16 08/20/20 04:00 BP 161/65 08/20/20 04:00 Pulse Ox 98 08/20/20 04:00 Intake & Output 08/19/20 08/20/20 08/20/20 18:59 06:59 18:59 Intake Total 1026.583 175.181 Balance 1026.583 175.181 Weight 65.5 kg Intake: Intake, IV Titration 71.583 175.181 Amount Diltiazem 125 mg In 71.583 Sodium Chloride 0.9% 100 ml @ 5 MG/HR 5 mls/hr IV .Q24H VEE Rx#:[id number] Heparin Sod,Pork in 0.45% 175.181 NaCl 25,000 unit In 0.45 % NaCl 1 250ml.bag @ 12 UNITS/KG/HR 8.52 mls/hr IV .Q24H VEE Rx#: [id number] Oral 955 Other: Voiding Method Bedside Commode # Voids 2 2 # Bowel Movements 0 - Exam PHYSICAL EXAM: VITAL SIGNS: [As above] GENERAL: Alert and oriented 3, Sitting up at side of bed,NAD HEENT: Conjunctivae normal. eyes normal. Speech fluent, appropriate. NECK: No JVD. No LNs CARDIOVASCULAR: S1, S2 regular.No murmur RESPIRATION: Breath sounds CTA, diminished in the bases. ABDOMEN: Soft, nondistended, nontender . No guarding. no masses palpable.Positive bowel sounds. LEGS: No edema. no swelling. NERVOUS SYSTEM: Cranial N 2-12 grossly normal. Moves all 4 limbs. Now able to perform right finger to nose-not ataxic. No focal deficits. Strength and sensation grossly intact. Skin: Warm and dry, no rash - Labs CBC & Chem 7: 08/20/20 03:50 08/19/20 09:17 Labs: Abnormal Lab Results - Last 24 Hours (Table) 08/19/20 08/19/20 08/19/20 Range/Units 09:17 15:30 19:01 RBC (3.80-5.40) m/uL Hgb (11.4-16.0) gm/dL APTT 54.3 H 43.4 H (22.0-30.0) sec Sodium 136 L (137-145) mmol/L BUN 6 L (7-17) mg/dL Glucose 114 H (74-99) mg/dL 08/20/20 08/20/20 Range/Units 03:50 03:50 RBC 3.63 L (3.80-5.40) m/uL Hgb 11.2 L (11.4-16.0) gm/dL APTT 87.1 H (22.0-30.0) sec Sodium (137-145) mmol/L BUN (7-17) mg/dL Glucose (74-99) mg/dL Assessment and Plan Assessment: Acute ischemic right cerebellar CVA with mild right hemiparesis, secondary to A. fib with fast ventricular rate Vertigo Hypertension Hyperlipidemia CAD with history of ND and cardiac stents Left ICA stenosis 50% Moderate concentric left ventricular hypertrophy, EF 55-60% Severely dilated LA Moderate to severe mitral regurgitation Moderate to severe tricuspid regurgitation Severe pulmonary hypertension Osteoarthritis Plan: Continue on current medication regime , statin, monitoring and symptomatic treatment. Antiarrhythmics/anticoagulation as per cardiology. Speech therapy. PT/OT. Follow closely with neurology. Discharge planning in progress possibly for tomorrow, pending final DC recommendations and clearance from both cardiology and neurology. At discharge patient will require walker for safety secondary to right foot " delay", prevent falls. Case management/social work assisting patient in arranging temporary Medicaid, Medicare/indigent funds as she currently has no insurance. The impression and plan of care has been dictated as directed. : I performed a history and examination of this patient, discussed the same with the dictator. I agree with the dictator's note ,documented as a scribe. Any additional findings or plans will be noted.
[2020-08-20] MEDS ORDERED: WARFARIN 5 MG TAB PO ONE (18:00)
--- NOTE | 2020-08-20 19:54 | P.PN ---
Subjective Progress Note Date: 08/20/20 Patient states she is feeling better than yesterday. Her speech is much more clear, had undergone recent speech therapy session. Her right arm ataxia also has improved. No new focal symptoms. Patient denies any headache. Telemetry monitoring showing sinus rhythm at this time. Patient had atrial fibrillation last night, which converted to sinus rhythm at 9:34 PM. Objective - Vital Signs Vital signs: Vital Signs Temp 97.2 F L 08/20/20 16:12 Pulse 66 08/20/20 16:12 Resp 16 08/20/20 16:12 BP 152/84 08/20/20 16:12 Pulse Ox 98 08/20/20 16:12 Intake & Output 08/20/20 08/20/20 08/21/20 06:59 18:59 06:59 Intake Total 175.181 734.494 Balance 175.181 734.494 Weight 65.5 kg Intake: Intake, IV Titration 175.181 36.494 Amount Heparin Sod,Pork in 0.45% 175.181 36.494 NaCl 25,000 unit In 0.45 % NaCl 1 250ml.bag @ 12 UNITS/KG/HR 8.52 mls/hr IV .Q24H VEE Rx#: [id number] Oral 698 Other: Voiding Method Bedside Commode Toilet Bedside Commode # Voids 2 1 - Exam Patient's mental status is normal. Patient has mild dysarthria, stable. Cranial nerves are normal. Patient has mild right pronation. Patient's right arm ataxia has improved. No ataxia in the lower limbs. Sensations are equal. Gait deferred. - Labs CBC & Chem 7: 08/20/20 03:50 08/19/20 09:17 Labs: Abnormal Lab Results - Last 24 Hours (Table) 08/19/20 08/20/20 08/20/20 Range/Units 19:01 03:50 03:50 RBC 3.63 L (3.80-5.40) m/uL Hgb 11.2 L (11.4-16.0) gm/dL APTT 43.4 H 87.1 H (22.0-30.0) sec 08/20/20 Range/Units 10:56 RBC (3.80-5.40) m/uL Hgb (11.4-16.0) gm/dL APTT 63.1 H (22.0-30.0) sec Assessment and Plan Assessment: * Acute right cerebellar ischemic stroke. Most likely cardio embolic source. * Patient developed atrial fibrillation last night. * Hypertension * Left ICA stenosis 50% per CTA * Hyperlipidemia Plan: * Patient is improving gradually as compared to yesterday. Still has some dysarthria, and ataxia for [id number] testing on the right. Continue speech therapy and physical therapy. * MRI of the brain revealed acute to subacute right cerebellar ischemic infarct. Chronic microvascular ischemic changes. * 2-D echo showed EF 55-60%. Left atrium is severely dilated. Moderate to severe MR, moderate to severe TR. Severe pulmonary hypertension. As patient has developed new onset atrial fibrillation overnight, therefore SAM was canceled. I'm not sure if SAM is still indicated to evaluate for valvular abnormalities noted above in the transthoracic echocardiogram. * Patient currently started on heparin drip. Patient also on Coumadin, INR is subtherapeutic 1.1 at this time. Target INR 2-3. PTT 63.1. * Fasting a.m. lipid panel with cholesterol 289, LDL 143, HDL 74 and triglycerides 360. Start Lipitor 40 mg daily. * Hemoglobin A1c 5.6. * Blood pressure 152/84. Optimize control of blood pressure at this time.
[2020-08-20] MEDS: ATORVASTATIN 40 MG TAB PO SCH (21:04)
[2020-08-20 23:20] VITALS: TEMP 97.6
[2020-08-21] MEDS: SODIUM CHLORIDE 0.9% 1,000 ML IV SCH (06:08)
[2020-08-21] MEDS: INSULIN ASPART (NovoLOG) 100 UNIT/ML VIAL SQ SCH ×2 (06:09→11:12)
[2020-08-21 07:57] LABS: Basophils # (A) 0.1 k/uL (0-0.2); Basophils % (A) 1 %; Eosinophils # (A) 0.4 k/uL (0-0.7); Eosinophils % (A) 5 %; HGB 13.3 gm/dL (11.4-16.0); Lymphocytes % (A) 14 %; MCH 30.9 pg (25.0-35.0); MCHC 33.2 g/dL (31.0-37.0); MCV 92.9 fL (80.0-100.0); Mean Platelet Volume 8.5; Monocytes # (A) 0.3 k/uL (0-1.0); Monocytes % (A) 5 %; Neutrophils # (A) 5.4 k/uL (1.3-7.7); Neutrophils % (A) 74 %; Platelet Count 238 k/uL (150-450); WBC 7.3 k/uL (3.8-10.6)
[2020-08-21 08:10] LABS: Partial Thromboplastin Time 52.4 sec (22.0-30.0); Prothrombin Time 10.7 sec (9.0-12.0)
[2020-08-21] MEDS: HEPARIN SOD,PORK IN 0.45% NACL 25,000 UNIT in 0.45% NACL 1 250ML.BAG IV SCH (09:38)
[2020-08-21] MEDS: ASPIRIN 325 MG TAB PO SCH (09:39)
[2020-08-21] MEDS: amLODIPine 5 MG TAB PO SCH (09:39)
[2020-08-21] MEDS: METOPROLOL TARTRATE 25 MG TAB PO SCH (09:39)
[2020-08-21] MEDS: PANTOPRAZOLE 40 MG/10 ML VIAL IVP SCH (09:40)
--- NOTE | 2020-08-21 10:22 | P.DS ---
Providers Date of admission: 08/17/20 10:51 Expected date of discharge: 08/21/20 Attending physician: Lee Barrera Consults: 08/17/20 10:57 Consult Physician Urgent Consulting Provider: Ruchi Nunn Consult Reason/Comments: cva Do you want consulting provider notified?: Yes 08/18/20 10:48 Consult Physician Routine Consulting Provider: Karthik Francisco Consult Reason/Comments: SAM for CVA Do you want consulting provider notified?: Already Contacted Primary care physician: Lee Barrera Hospital Course: Final Diagnoses: Acute ischemic right cerebellar CVA with mild right hemiparesis, secondary to A. fib with fast ventricular rate, currently sinus rhythm Hypertension Hyperlipidemia CAD with history of MS and cardiac stents Left ICA stenosis 50% Moderate concentric left ventricular hypertrophy, EF 55-60% Severely dilated LA Moderate to severe mitral regurgitation Moderate to severe tricuspid regurgitation Severe pulmonary hypertension Osteoarthritis Hemoglobin A1c 5.6 Hospital course:This is a 60-year-old female with past medical history of CAD with cardiac stents, MS, hypertension, osteoarthritis, presented to the ER with slurred speech, right-sided weakness involving upper extremity more than lower extremity with right facial droop, tongue numbness, dizziness/head spinning/vertigo accompanied by nausea and vomiting upon awakening. Denies abdominal pain . Denies incontinence .On arrival to the ER, patient had uncontrolled blood pressure with systolic 193/95. Brain CT reported chronic small vessel ischemic change with no acute intracranial process, CTA of head neck reported no hemodynamic significant stenosis identified ( Left ICA 50% stenosis), no significant abnormality, EKG reported normal sinus rhythm troponin negative, triglycerides 360, cholesterol 289, LDL 143, HDL 74, echo reported moderate concentric left ventricular hypertrophy, normal LV function with EF 55- 60%, severely dilated LA, moderate to severe mitral regurgitation, moderate to severe tricuspid regurgitation, severe pulmonary hypertension, brain MRI reported acute/subacute right cerebellar ischemic infarct, no acute intracranial hemorrhage, no midline shift, no mass, chronic microvascular ischemic changes. Afebrile, unremarkable hematology panel, a PTT 19.2, PT/INR within normal limits, chemistry unremarkable with the exception of mildly decreased sodium 136, glucose 162. Wolfe virus not detected. Denies chest pain palpitations or shortness of breath.Received aspirin in the ER, Patient was beyond the window for TPA treatment. Reports her speech and right lower extremity weakness improving. 08/19/2020 maintained on dual antiplatelet tx with both aspirin and Plavix, symptoms improving. Reports right leg appears a "little delayed" when preparing to walk, right hand dexterity a little slow, noted with texting. Yesterday afternoon, developed symptomatic atrial fibrillation with fast ventricular rate heart rate, up into the 130s, placed on Cardizem drip. Patient reported palpitations, states she had this sensation previously. SAM canceled per cardiology. 08/20/2020 Converted to sinus rhythm at 2134 yesterday. Telemetry sinus rhythm with occasional PVCs, minimal ectopy. Case management/social work assisting patient with obtaining Medicaid/Medicare as patient currently has no insurance. Continues to improve. Working with speech therapy. Anticoagulated on heparin drip. Ambulating with walker as right leg still feels delayed despite positive motor strength. Denies chest pain, palpitations or shortness of breath. Significant clinical improvement. Cleared by both cardiology and neurology. Beta dorota dose increased, with anticoagulation as per cardiology. Labs/INR pending. Patient will be discharged home today in a stable condition with guarded prognosis. Case management [facility] for discharge Rxs. The impression and plan of care has been dictated as directed. : I performed a history and examination of this patient, discussed the same with the dictator. I agree with the dictator's note ,documented as a scribe. Any additional findings or plans will be noted. Patient Condition at Discharge: Stable Plan - Discharge Summary Discharge Rx Participant: No New Discharge Prescriptions: New Atorvastatin [Lipitor] 40 mg PO HS #30 tab Metoprolol Tartrate [Lopressor] 75 mg PO BID #180 tab amLODIPine [Norvasc] 5 mg PO DAILY #30 tab Pantoprazole Sodium [Protonix] 40 mg PO DAILY #30 tablet. Warfarin [Coumadin] 5 mg PO DAILY #30 tab Enoxaparin [Lovenox] 100 mg SQ DAILY #5 syr Continue Aspirin EC [Ecotrin Low Dose] 81 mg PO DAILY Discontinued Metoprolol Tartrate [Lopressor] 25 mg PO BID Discharge Medication List Aspirin EC [Ecotrin Low Dose] 81 mg PO DAILY 07/20/16 [History] Atorvastatin [Lipitor] 40 mg PO HS #30 tab 08/21/20 [Rx] Enoxaparin [Lovenox] 100 mg SQ DAILY #5 syr 08/21/20 [Rx] Metoprolol Tartrate [Lopressor] 75 mg PO BID #180 tab 08/21/20 [Rx] Pantoprazole Sodium [Protonix] 40 mg PO DAILY #30 tablet. 08/21/20 [Rx] Warfarin [Coumadin] 5 mg PO DAILY #30 tab 08/21/20 [Rx] amLODIPine [Norvasc] 5 mg PO DAILY #30 tab 08/21/20 [Rx] Follow up Appointment(s)/Referral(s): Lee Barrera DO [Primary Care Provider] - 08/25/20 1:00 pm [facility], [NON-STAFF] - (Home care to draw your blood work on Monday at visit. Give prescription to your home care nurse.) Kelvin Spencer DO [STAFF PHYSICIAN] - 2 Weeks (Neurologist - please call and schedule a follow up appointment when your medicaid gets approved.) Karthik Francisco MD [STAFF PHYSICIAN] - 1 Week (E[employer] - please call and schedule a follow up appointment when your medicaid gets approved.) Ambulatory/Diagnostic Orders: Prothrombin Time INR [LAB.AMB] Time Frame: 08/24/20, Location: None Selected Patient Instructions/Handouts: A-fib (Atrial Fibrillation) (DC), How to Give a Subcutaneous Injection (DC), Right Hemispheric Stroke (DC), Vitamin K in Foods (DC), Safe Use of Anticoagulants (DC) Activity/Diet/Wound Care/Special Instructions: INR pending, anticoagulation as per cardiology Nurse Indigent form is in chart, please send to MAKAYLA Mcgraw at d/c. Home care, PT, speech therapy Labs as ordered ,are to be drawn by home care Discharge/Stand Alone Forms: Who Do I Call?, Community Resources, Help In The Home Discharge Disposition: HOME WITH HOME HEALTH SERVICES
[2020-08-21 10:56] VITALS: BP 148/88; PULSE 77; RESP 16
[2020-08-21] MEDS ORDERED: ENOXAPARIN 100 MG/ML SYRINGE SQ STA (11:13)
--- NOTE | 2020-08-21 12:21 | P.PN ---
Subjective Progress Note Date: 08/21/20 HISTORY OF PRESENT ILLNESS: 08/19/2020 60-year-old female admitted to the hospital secondary to CVA. Patient was scheduled for SAM today. However, patient went into A. fib with RVR yesterday. Patient does not have a history of atrial fibrillation. She was started on IV Cardizem. Patient's heart rate remains uncontrolled this morning in the 120s. She denies chest pain or pressure. She denies shortness of breath. Echocardiogram completed revealing ejection fraction 55-60%, moderate to severe mitral regurgitation, moderate to severe tricuspid regurgitation, and severe pul monary hypertension. 08/20/2020 Patient examined this morning at the bedside. Patient has converted to sinus rhythm. Heart rate in the 70s. Blood pressure 134/74. She denies chest pain or pressure. Denies shortness of breath. She remains on IV heparin. She was started on Coumadin yesterday. INR 1.1 today. 08/21/2020 Patient examined this morning at the bedside. Patient denies chest pain or pressure. Denies shortness of breath. Patient is maintaining sinus mechanism. INR 1.1 today. She has been cleared for discharge by admitting physician. PHYSICAL EXAM: VITAL SIGNS: Reviewed. GENERAL: Well-developed in no acute distress. NECK: Supple. No JVD or thyromegaly LUNGS: Respirations even and unlabored. Lungs essentially clear to auscultation bilaterally. HEART: Regular rate and rhythm. S1 and S2 heard. EXTREMITIES: No clubbing or cyanosis. Peripheral pulses intact. No lower extremity edema ASSESSMENT: Acute CVA Paroxysmal atrial fibrillation with RVR, currently maintaining sinus mechanism Coronary artery disease with previous PCI Valvular heart disease Severe pulmonary retention PLAN: Agreeable to discharge home today. Patient will be discharged home on Coumadin 5 mg daily along with Lovenox 100 mg subcu daily for Coumadin bridging. Patient to have INR checked in 3 days. Patient to follow-up in the office. Nurse practitioner note has been reviewed by physician. Signing provider agrees with the documented findings, assessment, and plan of care. Objective - Vital Signs Vital signs: Vital Signs Temp 97.6 F 08/21/20 10:00 Pulse 77 08/21/20 10:00 Resp 16 08/21/20 10:00 BP 148/88 08/21/20 10:00 Pulse Ox 99 08/21/20 10:00 Intake & Output 08/20/20 08/21/20 08/21/20 18:59 06:59 18:59 Intake Total 734.494 443.32 Balance 734.494 443.32 Weight 66 kg Intake: Intake, IV Titration 36.494 207.32 Amount Heparin Sod,Pork in 0.45% 36.494 207.32 NaCl 25,000 unit In 0.45 % NaCl 1 250ml.bag @ 12 UNITS/KG/HR 8.52 mls/hr IV .Q24H [facility] Rx#: [id number] Oral [id number] Other: Voiding Method Toilet Toilet Toilet Bedside Commode # Voids 1 3 1 - Labs CBC & Chem 7: 08/21/20 07:32 08/19/20 09:17 Labs: Abnormal Lab Results - Last 24 Hours (Table) 08/20/20 08/21/20 Range/Units 10:56 07:32 APTT 63.1 H 52.4 H (22.0-30.0) sec
[2020-08-21] MEDS ORDERED: WARFARIN 10 MG TAB PO ONE (18:00)
== END 2020-08-21 13:28 | disposition home health service (06) | DRG 65 ==
LOC: EC 09:42 → 3SCARD 10:51
PROVIDERS: ADMIT Family Medicine; ATTEND Family Medicine
DX: I63.9 Cerebral infarction, unspecified (principal); G81.91 Hemiplegia, unspecified affecting right dominant side; I65.22 Occlusion and stenosis of left carotid artery; I48.0 Paroxysmal atrial fibrillation; I27.20 Pulmonary hypertension, unspecified; E78.5 Hyperlipidemia, unspecified; I08.1 Rheumatic disorders of both mitral and tricuspid valves; I10 Essential (primary) hypertension; I25.10 Atherosclerotic heart disease of native coronary artery without angina pectoris; I49.3 Ventricular premature depolarization; M19.90 Unspecified osteoarthritis, unspecified site; R29.810 Facial weakness; Z20.822 Contact with and (suspected) exposure to COVID-19; I25.2 Old myocardial infarction; Z79.82 Long term (current) use of aspirin; Z79.899 Other long term (current) drug therapy; Z82.49 Family history of ischemic heart disease and other diseases of the circulatory system; Z95.5 Presence of coronary angioplasty implant and graft; Z91.040 Latex allergy status
CPT/HCPCS: 36415; 70450; 70496; 70498; 70551; 71046; 80048; 80053; 80061; 83036; 83735; 83880; 84484; 85025; 85610; 85730; 87635; 93005; 93306; 96374; 99285

== ENCOUNTER → 2021-01-13 | Outpatient (CLI) | payer OTHER | END | disposition home or self-care (01) | LOC: LABWHC1 10:47 | PROVIDERS: ATTEND Physician Assistant | DX: I63.9 Cerebral infarction, unspecified (principal) | CPT/HCPCS: 36415; 83090 ==

== ENCOUNTER → 2021-01-21 | Outpatient (CLI) | payer OTHER ==
--- NOTE | 2021-01-21 17:09 | FL ---
EXAMINATION TYPE: FL barium swallow w video DATE OF EXAM: 01/21/2021 COMPARISON: NONE HISTORY: Choking on pills, food gets stuck TECHNIQUE: Fluoroscopy. FINDINGS: Fluoroscopic guidance was provided for the procedure performed in conjunction with the [facility] pathology department. Please see complete report forthcoming from the Speech Pathology departmen t. Various consistencies from thin liquid to solids were administered. Fluoroscopy time 1 minute 6 seconds. Number of images: 0. No aspiration or penetration was evident. No significant pooling was observed in the vallecula. There was normal propulsion of the bolus. IMPRESSION: 1. Normal modified barium swallow
== END | disposition home or self-care (01) ==
LOC: RADFLMAIN 11:17
PROVIDERS: ATTEND Psychiatry & Neurology Neurology
DX: R13.10 Dysphagia, unspecified (principal)
CPT/HCPCS: 74230

== ENCOUNTER 2021-03-07 14:14 | Inpatient (IN) | payer OTHER ==
[2021-03-07] MEDS ORDERED: SODIUM CHLORIDE 0.9% 1,000 ML IV STA (14:38)
[2021-03-07] MEDS ORDERED: SODIUM CHLORIDE 0.9% 500 ML 500 ML IV STA (14:38)
[2021-03-07 14:58] LABS: Basophils % (A) 0 %; Eosinophils # (A) 0.2 k/uL (0-0.7); Eosinophils % (A) 2 %; HCT 38.8 % (34.0-46.0); HGB 13.5 gm/dL (11.4-16.0); Lymphocytes # (A) 1.3 k/uL (1.0-4.8); Lymphocytes % (A) 14 %; MCH 31.6 pg (25.0-35.0); MCHC 34.7 g/dL (31.0-37.0); MCV 91.2 fL (80.0-100.0); Mean Platelet Volume 8.9; Monocytes # (A) 0.4 k/uL (0-1.0); Monocytes % (A) 5 %; Neutrophils % (A) 77 %; Platelet Count 234 k/uL (150-450); RBC 4.26 m/uL (3.80-5.40); RDW 12.3 % (11.5-15.5); WBC 9.1 k/uL (3.8-10.6)
[2021-03-07 15:07] LABS: Partial Thromboplastin Time 29.2 sec (22.0-30.0); Prothrombin Time 10.8 sec (9.0-12.0)
[2021-03-07 15:10] LABS: ALT 31 U/L (4-34); AST 36 U/L (14-36); African American GFR (CKD) >90 (>60 ml/min/1.73 sqM); Albumin 4.7 g/dL (3.5-5.0); Alkaline Phosphatase 93 U/L (38-126); Anion Gap 12 mmol/L; Blood Urea Nitrogen 21 mg/dL (7-17); Calcium 9.6 mg/dL (8.4-10.2); Carbon Dioxide 20 mmol/L (22-30); Chloride 93 mmol/L (98-107); Glucose 101 mg/dL (74-99); Magnesium 1.7 mg/dL (1.6-2.3); Non-African American GFR(CKD) 85 (>60 ml/min/1.73 sqM); Sodium 125 mmol/L (137-145); Total Bilirubin 0.8 mg/dL (0.2-1.3); Total Protein 7.5 g/dL (6.3-8.2)
[2021-03-07] MEDS ORDERED: ACETAMINOPHEN TAB 325 MG TAB PO STA (15:23)
--- NOTE | 2021-03-07 15:30 | XR ---
EXAMINATION TYPE: XR chest 2V DATE OF EXAM: 03/07/2021 COMPARISON: 08/17/2020 HISTORY: Nausea and vomiting TECHNIQUE: 2 views FINDINGS: Heart and mediastinum are normal. Lungs are clear. Diaphragm is normal. Bony thorax is inta ct. There are chest leads. IMPRESSION: No active cardiopulmonary disease. Normal heart. There is clearing of the pulmonary edema compared to old exam..
--- NOTE | 2021-03-07 15:39 | CT ---
EXAMINATION TYPE: CT brain wo con DATE OF EXAM: 03/07/2021 COMPARISON: 08/17/2020 HISTORY: Multiple syncopal episodes today. CT DLP: 1014 mGycm Automated exposure control for dose reduction was used. Exam performed with no contrast. There are some cerebral cortical atrophy. There is no mass effect nor midline shift. There is no sign of intracranial hemorrhage. Calvarium is intact. There is normal aeration of the mastoid sinuses. Sk ull base is intact. IMPRESSION: Cerebral atrophy. No acute intracranial abnormality. No change.
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
--- NOTE | 2021-03-07 15:53 | CT ---
EXAMINATION TYPE: CT angio head neck DATE OF EXAM: 03/07/2021 COMPARISON: None HISTORY: Neuro deficit. Weakness. CT DLP: 397.8 mGycm Automated exposure control for dose reduction was used. CONTRAST: Performed with IV Contrast, patient injected with 65 mL of Isovue 370. Images obtained from the aortic arch to the vertex of the brain with IV contrast. There are 3-D post processed images. FINDINGS: There is normal branching pattern of the great vessels on the aortic arch. There is bilateral arteria l flow in the subclavian arteries. There is arterial flow in the common internal and external carotid arteries bilaterally. There is plaque formation at the carotid artery bifurcations. There is less th an 10% narrowing on the right side at the right internal carotid artery. There is approximate 30% lucy nosis of the proximal left internal cord artery. There is arterial flow in both vertebral arteries. T here is no evidence of carotid or vertebral artery aneurysm or dissection. There is arterial flow in the vertebrobasilar artery system. There is arterial flow in the anterior middle and posterior cerebral arteries. There is no mass effect. There is no sign of intracranial ane urysm or neovascularity. There is no evidence of hemodynamic stenosis. There is normal enhancement of the venous sinuses. IMPRESSION: Negative CT angiogram of the brain. Mild plaque at the carotid artery bifurcations with estimated 10% stenosis of the right internal ng tid artery and 30% stenosis left internal carotid artery.
[2021-03-07 15:57] LABS: Appearance,Urine Clear (Clear); Bilirubin,Urine Negative (Negative); Blood,Urine Negative (Negative); Color,Urine Colorless; Glucose,Urine (UA) Negative (Negative); Ketones,Urine Trace (Negative); Leukocyte Esterase,Urine Trace (Negative); Nitrite,Urine Negative (Negative); PH, Urine 7.5 (5.0-8.0); Protein,Urine Negative (Negative); Specific Gravity,Urine 1.016 (1.001-1.035); Squamous Epithelial Cell,Urine <1 /hpf (0-4); Urobilinogen,Urine <2.0 mg/dL (<2.0); WBC,Urine 1 /hpf (0-5)
[2021-03-07] MEDS ORDERED: ACETAMINOPHEN TAB 325 MG TAB PO PRN (16:05)
[2021-03-07] MEDS ORDERED: NALOXONE 0.4 MG/ML 1 ML VIAL IV PRN (16:05)
[2021-03-07] MEDS: SODIUM CHLORIDE 0.9% 1,000 ML IV SCH (17:46)
[2021-03-07] MEDS: METOPROLOL TARTRATE 25 MG TAB PO SCH (20:00)
[2021-03-07] MEDS: APIXABAN 5 MG TAB PO SCH (20:00)
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
[2021-03-07] MEDS ORDERED: ATORVASTATIN 40 MG TAB PO SCH (21:00)
[2021-03-08 07:27] VITALS: RESP 16; TEMP 97.7
[2021-03-08] MEDS ORDERED: PANTOPRAZOLE 40 MG TABLET PO SCH (07:30)
[2021-03-08] MEDS: SODIUM CHLORIDE 0.9% 1,000 ML IV SCH (08:52)
[2021-03-08] MEDS: APIXABAN 5 MG TAB PO SCH (08:57)
[2021-03-08] MEDS: METOPROLOL TARTRATE 25 MG TAB PO SCH (08:57)
[2021-03-08] MEDS ORDERED: amLODIPine 5 MG TAB PO SCH (09:00)
[2021-03-08 09:16] VITALS: BP 152/74; PULSE 68
[2021-03-08 09:28] LABS: Basophils % (A) 1 %; Eosinophils # (A) 0.1 k/uL (0-0.7); Eosinophils % (A) 2 %; HCT 39.2 % (34.0-46.0); HGB 13.1 gm/dL (11.4-16.0); Lymphocytes # (A) 0.9 k/uL (1.0-4.8); Lymphocytes % (A) 21 %; MCH 31.5 pg (25.0-35.0); MCHC 33.3 g/dL (31.0-37.0); MCV 94.7 fL (80.0-100.0); Mean Platelet Volume 8.8; Monocytes # (A) 0.3 k/uL (0-1.0); Monocytes % (A) 6 %; Neutrophils % (A) 68 %; Platelet Count 208 k/uL (150-450); RBC 4.14 m/uL (3.80-5.40); RDW 13.3 % (11.5-15.5); WBC 4.4 k/uL (3.8-10.6)
[2021-03-08 10:53] LABS: African American GFR (CKD) >90 (>60 ml/min/1.73 sqM); Anion Gap 9 mmol/L; Blood Urea Nitrogen 10 mg/dL (7-17); Calcium 10.1 mg/dL (8.4-10.2); Carbon Dioxide 26 mmol/L (22-30); Chloride 103 mmol/L (98-107); Glucose 115 mg/dL (74-99); Non-African American GFR(CKD) >90 (>60 ml/min/1.73 sqM); Potassium 3.9 mmol/L (3.5-5.1); Sodium 138 mmol/L (137-145)
[2021-03-08 11:18] LABS: Basophils # (A) 0.03 X 10*3/uL (0.00-0.10); Basophils % (A) 0.7 %; Eosinophils # (A) 0.09 X 10*3/uL (0.04-0.35); HCT 41.5 % (37.2-46.3); HGB 13.9 g/dL (12.0-15.0); Lymphocytes % (A) 37.9 %; MCH 30.9 pg (27.0-32.0); MCHC 33.5 g/dL (32.0-37.0); MCV 92.2 fL (80.0-97.0); Mean Platelet Volume 12.2 fL (9.5-12.2); Monocytes # (A) 0.34 X 10*3/uL (0.20-1.00); Monocytes % (A) 7.6 %; Neutrophils # (A) 2.31 X 10*3/uL (1.80-7.70); Neutrophils % (A) 51.6 %; Platelet Count 251 X 10*3/uL (140-440); RDW 12.7 % (11.5-14.5); WBC 4.48 X 10*3/uL (4.50-10.00)
--- NOTE | 2021-03-08 11:47 | P.DS ---
Providers Date of admission: 03/07/21 16:05 Expected date of discharge: 03/08/21 Attending physician: Lee Barrera Primary care physician: Lee Barrera [facility] Course: Final Diagnoses: Iatrogenic hyponatremia, patient consumes a case of water every 2 days. Syncope, suspect related to the above. Full workup tomorrow with scheduled specialist in [facility], Dr. Blount, in [facility]. Recent CVA, right cerebellar Recent cerebral aneurysm, follow-up with Dr. BLOUNT 03/09 Hypertension Hyperlipidemia CAD with history of DE and cardiac stents Moderate concentric left ventricular hypertrophy, EF 55-60% Severely dilated LA Left internal carotid artery stenosis 50% per prior CTA Severe pulmonary hypertension Osteoarthritis Hemoglobin A1c 5.6 from August 2020 Hospital course: This a 61-year-old female presented with hyponatremia, syncope in a patient with history of recent CVA, recently diagnosed cerebral aneurysm per MRI, CAD/DE and multiple other medical issues. On admission sodium 125, patient states she is regularly consuming a case of water every 2 days. Denies any cough congestion shortness of breath or chest pain. Ambulating, tolerating exertion well. Denies lightheadedness, dizziness or focal deficits. Negative for orthostatic hypotension. Receiving IV fluid hydration of 0.9 normal saline in addition to 1 L daily fluid restrictions. Sodium significantly improved, 138. CBC, BMP unremarkable. Blood sugars controlled.Patient is scheduled to see neurology specialist at [facility], Dr Blount, tomorrow regarding her previous diagnoses of aneurysm. Discussed with patient having full syncope workup at tomorrow's visit with Dr. Blount, in order to facilitate her visit with the specialist and cancel neurology consult today. Patient agreeable to having full neuro workup completed at tomorrow's visit with specialist in [facility]. Patient has been advised on fluid restrictions, 1 L daily. Patient has been advised if any further symptoms prior to tomorrow's visit, to return to the ER. Patient to be provided with CDs of angiography CT, brain CT, to take to specialist apt. chest x-ray reported no active cardiopulmonary disease,brain CT reporting cerebral atrophy, no acute intracranial abnormality, no change. CT angio head and neck reported negative, mild plaque at the carotid artery bifurcations with estimated 10 percent stenosis of the right internal carotid artery and 30% stenosis left internal carotid artery ( left internal carotid artery stenosis 50% per prior CTA). PHYSICAL EXAM: VITAL SIGNS: [Stable] GENERAL: Sitting up in chair, no acute distress HEENT: Conjunctivae normal. eyes normal. Oral mucosa moist NECK: No JVD. No thyroid enlargement. No LNs CARDIOVASCULAR: S1, S2 regular. No murmur RESPIRATION: Breath sounds diminished in the bases. No rhonchi or crackles. No bronchial breathing. ABDOMEN: Soft, nontender . No guarding. no masses palpable. No ascites, No hepatosplenomegaly.Bowel sounds heard. LEGS: No edema. no swelling PSYCHIATRY: Alert and oriented X3, mood and affect normal. NERVOUS SYSTEM: Cranial N 2-12 grossly normal. Moves all 4 limbs. No focal deficits. Strength and sensation grossly intact. Skin: no lesions, no rash Lymphatic system. No LN neck axilla. The impression and plan of care has been dictated as directed. : I performed a history and examination of this patient, discussed the same with the dictator. I agree with the dictator's note ,documented as a scribe. Any additional findings or plans will be noted. Patient Condition at Discharge: Stable Plan - Discharge Summary Discharge Rx Participant: No New Discharge Prescriptions: Continue Aspirin EC [Ecotrin Low Dose] 81 mg PO DAILY Atorvastatin [Lipitor] 40 mg PO HS #30 tab amLODIPine [Norvasc] 5 mg PO DAILY #30 tab Apixaban [Eliquis] 5 mg PO BID Omeprazole 40 mg PO DAILY Metoprolol Tartrate [Lopressor] 75 mg PO BID Discharge Medication List Aspirin EC [Ecotrin Low Dose] 81 mg PO DAILY 07/20/16 [History] Atorvastatin [Lipitor] 40 mg PO HS #30 tab 08/21/20 [Rx] amLODIPine [Norvasc] 5 mg PO DAILY #30 tab 08/21/20 [Rx] Apixaban [Eliquis] 5 mg PO BID 03/07/21 [History] Metoprolol Tartrate [Lopressor] 75 mg PO BID 03/07/21 [History] Omeprazole 40 mg PO DAILY 03/07/21 [History] Follow up [facility]ment([facility]Other[facility] - 03/09/21 (Neurology specialist; patient scheduled to see regarding aneurysm and will also to have full syncope workup completed there as well.) Lee Barrera, [Primary Care Provider] - 3 Days Activity/Diet/Wound Care/Special Instructions: Fluid restrictions, 1 L per day
== END 2021-03-08 12:51 | disposition home or self-care (01) | DRG 641 ==
LOC: EC 14:14 → 4SSUR 16:05
PROVIDERS: ADMIT Family Medicine; ATTEND Family Medicine
DX: E87.1 Hypo-osmolality and hyponatremia (principal); E78.5 Hyperlipidemia, unspecified; I10 Essential (primary) hypertension; I25.10 Atherosclerotic heart disease of native coronary artery without angina pectoris; I25.2 Old myocardial infarction; M19.90 Unspecified osteoarthritis, unspecified site; Z79.01 Long term (current) use of anticoagulants; Z79.82 Long term (current) use of aspirin; Z82.49 Family history of ischemic heart disease and other diseases of the circulatory system; Z86.73 Personal history of transient ischemic attack (TIA), and cerebral infarction without residual deficits; Z87.891 Personal history of nicotine dependence; Z95.5 Presence of coronary angioplasty implant and graft; I27.20 Pulmonary hypertension, unspecified; I65.23 Occlusion and stenosis of bilateral carotid arteries; I67.1 Cerebral aneurysm, nonruptured
CPT/HCPCS: 36415; 70450; 70496; 70498; 71046; 80048; 80053; 81001; 83735; 84484; 85025; 85610; 85730; 93005; 94760; 96360; 99285

== ENCOUNTER → 2021-04-15 | Outpatient (CLI) | payer OTHER ==
[2021-04-15 17:03] LABS: Appearance,Urine Clear (Clear); Bacteria,Urine Rare /hpf; Bilirubin,Urine Negative (Negative); Blood,Urine Negative (Negative); Color,Urine Light Yellow; Glucose,Urine (UA) Negative (Negative); Ketones,Urine Negative (Negative); Leukocyte Esterase,Urine Trace (Negative); Nitrite,Urine Negative (Negative); Protein,Urine Negative (Negative); RBC,Urine <1 /hpf (0-5); Squamous Epithelial Cell,Urine <1 /hpf (0-4); Urobilinogen,Urine <2.0 mg/dL (<2.0); WBC,Urine 1 /hpf (0-5)
== END | disposition home or self-care (01) ==
LOC: LABWHC1 15:35
DX: I67.1 Cerebral aneurysm, nonruptured (principal)
CPT/HCPCS: 36415; 81001; 85730

== ENCOUNTER → 2021-09-24 | Outpatient (CLI) | payer OTHER ==
[2021-09-24 15:32] LABS: ALT 23 U/L (8-44); AST 19 U/L (13-35); African American GFR (CKD) 107.6 (60.0-200.0); Albumin 4.6 g/dL (3.8-4.9); Albumin/Globulin Ratio 1.84 (1.60-3.17); Alkaline Phosphatase 68 U/L (41-126); Blood Urea Nitrogen 11.2 mg/dL (9.0-27.0); Calcium 9.9 mg/dL (8.7-10.3); Carbon Dioxide 26.2 mmol/L (20.0-27.5); Chloride 101 mmol/L (96-109); Globulin 2.5 g/dL (1.6-3.3); Glucose 98 mg/dL (70-110); LDL Cholesterol,Calculated 87.6 mg/dL (0.0-131.0); Magnesium 2.1 mg/dL (1.5-2.4); Non-African American GFR(CKD) 92.9 (60.0-200.0); Potassium 4.6 mmol/L (3.5-5.5); Sodium 137 mmol/L (135-145); Total Protein 7.1 g/dL (6.2-8.2)
== END | disposition home or self-care (01) ==
LOC: LABWHC1 08:11
PROVIDERS: ATTEND Nurse Practitioner Adult Health
DX: I10 Essential (primary) hypertension (principal); E78.5 Hyperlipidemia, unspecified
CPT/HCPCS: 36415; 80053; 80061; 83735

== ENCOUNTER → 2022-01-03 | Outpatient (CLI) | payer OTHER ==
[2022-01-03 18:35] LABS: HCT 39.7 % (37.2-46.3); HGB 12.6 g/dL (12.0-15.0); MCH 29.4 pg (27.0-32.0); MCHC 31.7 g/dL (32.0-37.0); MCV 92.5 fL (80.0-97.0); Mean Platelet Volume 12.1 fL (9.5-12.2); NRBC Per 100 WBC 0 /100 WBCS (0.0-0.0); Platelet Count 274 X 10*3/uL (140-440); RBC 4.29 X 10*6/uL (4.10-5.20); RDW 12.6 % (11.5-14.5); WBC 6.62 X 10*3/uL (4.50-10.00)
[2022-01-03 18:47] LABS: African American GFR (CKD) 91.6 (60.0-200.0); Anion Gap 13.9 mmol/L (10.00-18.00); Blood Urea Nitrogen 13.1 mg/dL (9.0-27.0); Carbon Dioxide 26.1 mmol/L (20.0-27.5); Potassium 3.8 mmol/L (3.5-5.5)
== END | disposition home or self-care (01) ==
LOC: LABPAT 11:20
PROVIDERS: ATTEND Internal Medicine Interventional Cardiology
DX: Z01.812 Encounter for preprocedural laboratory examination (principal); I25.10 Atherosclerotic heart disease of native coronary artery without angina pectoris
CPT/HCPCS: 80051; 82565; 84520; 85027

== ENCOUNTER 2022-01-04 06:19 | Day surgery (SDC) | payer OTHER ==
[~2022-01-04 06:19] MED LIST: ALPRAZolam 0.25 MG TAB PO PRN; ALPRAZolam 0.5 MG TAB PO PRN; ASPIRIN 325 MG TAB PO STA; ATORVASTATIN 80 MG TAB PO STA; HEPARIN SODIUM,PORCINE 10,000 UNIT in SODIUM CHLORIDE 0.9% 1,000 ML IRRIGATION PRN; HEPARIN SODIUM,PORCINE 2,500 UNIT in SODIUM CHLORIDE 0.9% 250 ML IRRIGATION PRN; NITROGLYCERIN SL TABS 0.4 MG TAB SUBLINGUAL PRN
[2022-01-04] MEDS: SODIUM CHLORIDE 0.9% 1,000 ML in EMPTY BAG 1 BAG IV SCH (06:57)
[2022-01-04] MEDS ORDERED: ASPIRIN 325 MG TAB PO ONE (06:58)
[2022-01-04] MEDS ORDERED: HEPARIN SODIUM 1,000 UN/ML (10ML VL) ONE (07:17)
[2022-01-04] MEDS ORDERED: VERAPAMIL 2.5 MG/ML 2 ML AMP ONE (07:17)
[2022-01-04] MEDS ORDERED: LIDOCAINE 1% INJ 10MG/ML (5 ML VIAL-PF) SQ ONE (08:12)
[2022-01-04] MEDS ORDERED: VERAPAMIL SYRINGE (5 MG/10 ML) INTRAARTER ONE (08:13)
[2022-01-04] MEDS ORDERED: MIDAZOLAM 2 MG/2 ML VIAL IV ONE (08:14)
[2022-01-04] MEDS ORDERED: fentaNYL (PF) 50 MCG/ML 2 ML AMP ONE (08:14)
[2022-01-04] MEDS ORDERED: fentaNYL (PF) 50 MCG/ML 2 ML AMP IV ONE (08:15)
[2022-01-04] MEDS ORDERED: MORPHINE SULFATE 4 MG/ML SYRINGE ONE (08:48)
[2022-01-04] MEDS ORDERED: MORPHINE SULFATE 4 MG/ML SYRINGE IV ONE (08:49)
[2022-01-04] MEDS ORDERED: NITROGLYCERIN 1000MCG/10ML SYRINGE INTRACORON ONE (08:58)
[2022-01-04] MEDS ORDERED: CLOPIDOGREL 75 MG TAB ONE (09:00)
[2022-01-04] MEDS ORDERED: IOPAMIDOL-370 125ML BTL INJ ONE (09:02)
[2022-01-04] MEDS ORDERED: CLOPIDOGREL 75 MG TAB PO ONE (09:02)
[2022-01-04] MEDS ORDERED: RX INFO: IV CONTRAST WAS GIVEN 1 EACH MISC MISCELLANE PRN (09:05)
[2022-01-04] MEDS ORDERED: MAG HYDROX/AL HYDROX/SIMETH 30 ML CUP PO PRN (09:05)
[2022-01-04] MEDS ORDERED: NITROGLYCERIN SL TABS 0.4 MG TAB SUBLINGUAL PRN (09:05)
[2022-01-04] MEDS ORDERED: ATROPINE SULFATE 0.1 MG/ML 10ML SYRINGE IV PRN (09:05)
[2022-01-04] MEDS ORDERED: ZOLPIDEM 5 MG TAB PO PRN (09:05)
--- NOTE | 2022-01-04 09:11 | P.PCN ---
Date of Procedure: 01/04/22 Operative Findings: CARDIAC CATHETERIZATION AND PERCUTANEOUS CORONARY INTERVENTION PERFORMING PHYSICIAN: Abhishek Vitale MD, [facility] PROCEDURE PERFORMED: 1. Selective right and left coronary angiogram 2. Successful stenting of mid LAD using 2.5 x 18 mm Xience NATHANAEL which with an excellent angiographic results 3. Balloon angioplasty of the first diagonal branch of the LAD INDICATION: This is a 61-year-old female patient was experiencing symptoms of chest pain and shortness of breath and she underwent myocardial perfusion imaging stress test revealed an anterior skin. She is known to have CAD with prior stenting of the RCA COMPLICATION: None APPROACH: Right radial artery LEVEL OF SEDATION: Moderate with the sedation time off 48 minutes PROCEDURE DESCRIPTION: After obtaining an informed consent the patient was brought to the cardiac slab lifting supervisor. The right radial artery was cannulated using micropuncture technique, the micro-rupture wire passed easily then I placed a 6-Welsh sheath. After that the patient was given 2 mg of verapamil intra-arterial Selective right and left coronary angiogram performed using JR4 and JL 3.5 catheters. After that I did intervene on the LAD. SELECTIVE CORONARY ANGIOGRAM: The right coronary artery: Is a large caliber vessel and a dominant vessel. The RCA proximally appeared to have mild disease only. The mid RCA is a stented and the stent is patent. The RCA distally has mild disease only. It bifurcates into PDA and PLV branches appeared Left main: Short but angiographically normal. The left circumflex: Is a large caliber vessel nondominant vessel. The mid LCx has a lesion appeared to be in the range of 60%. The left anterior descending artery: The proximal LAD appeared to be angiographically normal. The mid LAD by the bifurcation of a large diagonal branch has a complex lesion appears to be in the range of 90-95%. The lesion is involving the diagonal which also is very tight. The LAD distally appears to be angiographically normal PCI OF THE LAD: Anticoagulation was initiated using heparin with continuous ACT monitoring. Subsequently I did wire the LAD using a whisper wire and I did wire the first diagonal branch also using a whisper wire. Attempting balloon angioplasty of the first diagonal using 2.5 balloon was unsuccessful and using 1.5 balloon was unsuccessful using 1 mm balloon was also unsuccessful. I did wire the diagonal using a harpreet wire was advanced through mid without I was able to do balloon angioplasty initially using 1 mm and then 1.5 mm and then 2.5 mm balloon. After that I did do balloon angioplasty of the LAD itself across the diagonal before I deployed 2.5 x 18 mm stent across the diagonal where the stent was positioned under fluoroscopy guidance and deployed under its nominal pressure with the following angiogram showed good angiographic results. The procedure was completed without any complications CONCLUSION: Patent stent in the mid RCA. Mild disease involving the distal RCA Normal left main coronary artery Intermediate disease involving the LCx Critical disease involving the mid LAD. Successful stenting was performed of the LAD POSTPROCEDURE MANAGEMENT: #1 dual antiplatelet therapy including aspirin and Plavix for at least 6 month #2 aggressive cholesterol control #3 follow-up with the patient
[2022-01-04] MEDS ORDERED: SODIUM CHLORIDE 0.9% 1,000 ML in EMPTY BAG 1 BAG IV SCH (09:15)
[2022-01-04] MEDS: METOPROLOL TARTRATE 25 MG TAB PO SCH (20:21)
[2022-01-04] MEDS ORDERED: ACETAMINOPHEN TAB 325 MG TAB PO PRN (20:26)
[2022-01-04] MEDS ORDERED: ATORVASTATIN 40 MG TAB PO SCH (21:00)
[2022-01-04] MEDS ORDERED: CLOPIDOGREL 75 MG TAB PO SCH (21:00)
[2022-01-04] MEDS ORDERED: FAMOTIDINE 20 MG TAB PO SCH (21:00)
[2022-01-05] MEDS: SODIUM CHLORIDE 0.9% 1,000 ML in EMPTY BAG 1 BAG IV SCH (00:46)
[2022-01-05 06:55] LABS: Basophils # (A) 0.1 k/uL (0-0.2); Basophils % (A) 1 %; Eosinophils # (A) 0.2 k/uL (0-0.7); Eosinophils % (A) 4 %; HGB 14.3 gm/dL (11.4-16.0); Lymphocytes # (A) 1.5 k/uL (1.0-4.8); Lymphocytes % (A) 30 %; MCH 30.9 pg (25.0-35.0); MCHC 32.5 g/dL (31.0-37.0); MCV 94.8 fL (80.0-100.0); Mean Platelet Volume 8.3; Monocytes # (A) 0.2 k/uL (0-1.0); Monocytes % (A) 5 %; Neutrophils # (A) 2.8 k/uL (1.3-7.7); Neutrophils % (A) 59 %; Platelet Count 246 k/uL (150-450); RBC 4.64 m/uL (3.80-5.40); RDW 12.5 % (11.5-15.5); WBC 4.8 k/uL (3.8-10.6)
[2022-01-05 07:11] LABS: African American GFR (CKD) >90 (>60 ml/min/1.73 sqM); Anion Gap 10 mmol/L; Blood Urea Nitrogen 12 mg/dL (7-17); Carbon Dioxide 27 mmol/L (22-30); Chloride 97 mmol/L (98-107); Glucose 115 mg/dL (74-99); Non-African American GFR(CKD) 82 (>60 ml/min/1.73 sqM); Potassium 4.3 mmol/L (3.5-5.1); Sodium 134 mmol/L (137-145)
[2022-01-05 07:32] VITALS: BP 129/69; PULSE 60; RESP 16; TEMP 97.6
[2022-01-05] MEDS ORDERED: COLCHICINE 0.6 MG EACH PO SCH (09:00)
[2022-01-05] MEDS ORDERED: amLODIPine 5 MG TAB PO SCH (09:00)
[2022-01-05] MEDS ORDERED: CLOPIDOGREL 75 MG TAB PO SCH (09:00)
--- NOTE | 2022-01-05 10:14 | P.DS ---
Providers Attending physician: Abhishek Vitale Consults: 01/04/22 09:05 Consult Physician Routine Consulting Provider: [facility] Consult Reason/Comments: Post Interventional patient Do you want consulting provider notified?: Already Contacted Primary care physician: Lee Barrera [facility] Course: The patient is a pleasant 61-year-old female patient was known CAD and prior stenting of the RCA as well as paroxysmal atrial fibrillation and hypertension and dyslipidemia who was seen in the office recently for chest discomfort. She underwent myocardial perfusion imaging stress test and that came in to be abnormal showing reversibility. In the light of that a heart catheterization was advised. She underwent yesterday heart catheterization and that revealed critical disease involving the LAD in the midportion with also critical disease involving the diagonal. I did perform successful stenting of the LAD and also balloon angioplasty of the diagonal. The patient was seen this morning. She was a stable. She is hemodynamically stable but she is asymptomatic as well. The right radial site is soft and nontender and without any bruises. The patient is going to be discharged home on dual antiplatelet therapy and I'll follow-up with the patient in the office in a week Plan - Discharge Summary Discharge Rx Participant: No New Discharge Prescriptions: Continue Atorvastatin [Lipitor] 40 mg PO HS #30 tab amLODIPine [Norvasc] 5 mg PO DAILY #30 tab Apixaban [Eliquis] 5 mg PO BID Famotidine [Pepcid] 20 mg PO HS Metoprolol Tartrate [Lopressor] 75 mg PO BID Clopidogrel [Plavix] 75 mg PO HS Colchicine 0.6 mg PO Q2D Discharge Medication List Atorvastatin [Lipitor] 40 mg PO HS #30 tab 08/21/20 [Rx] amLODIPine [Norvasc] 5 mg PO DAILY #30 tab 08/21/20 [Rx] Apixaban [Eliquis] 5 mg PO BID 03/07/21 [History] Metoprolol Tartrate [Lopressor] 75 mg PO BID 03/07/21 [History] Clopidogrel [Plavix] 75 mg PO HS 01/03/22 [History] Colchicine 0.6 mg PO Q2D 01/03/22 [History] Famotidine [Pepcid] 20 mg PO HS 01/03/22 [History] Follow up Appointment(s)/Referral(s): Abhishek Vitale MD [STAFF PHYSICIAN] - 1 Week (APPOINTMENT MADE ON January @ 5:00PM ) Patient Instructions/Handouts: *[facility] - After Heart Catheterization - Air Pollution Inspector Instructions, Moderate Sedation (ED), Cardiac Rehabilitation (ED), Coronary Intravascular Stent Placement (DC)
[2022-01-05] MEDS: METOPROLOL TARTRATE 25 MG TAB PO SCH (10:16)
[2022-01-05 11:14] VITALS: BMI 24.2
== END 2022-01-05 11:44 | disposition home or self-care (01) ==
LOC: CATHCVL 06:19 → 6NMEDSUR 08:59 → CATHCVL 01-05 11:44
PROVIDERS: ATTEND Internal Medicine Interventional Cardiology
DX: I25.110 Atherosclerotic heart disease of native coronary artery with unstable angina pectoris (principal); Z95.5 Presence of coronary angioplasty implant and graft; E78.5 Hyperlipidemia, unspecified; I10 Essential (primary) hypertension; E78.00 Pure hypercholesterolemia, unspecified; I48.0 Paroxysmal atrial fibrillation; I34.0 Nonrheumatic mitral (valve) insufficiency; I67.1 Cerebral aneurysm, nonruptured; Z87.891 Personal history of nicotine dependence; Z79.01 Long term (current) use of anticoagulants; Z79.899 Other long term (current) drug therapy; Z79.02 Long term (current) use of antithrombotics/antiplatelets; Z91.040 Latex allergy status; Z20.822 Contact with and (suspected) exposure to COVID-19
CPT/HCPCS: 93454; 80048; 85025; 87635; 92921; C9600; C1769 ×3; C1887; C1894; C1725 ×3; C1874; J2250; J2270; J2001; J3010; J1644; Q9967

== ENCOUNTER → 2022-10-28 | Outpatient (CLI) | payer OTHER ==
[2022-10-28 15:31] LABS: HGB 13.4 g/dL (12.0-15.0); MCHC 32.7 g/dL (32.0-37.0); MCV 91.9 fL (80.0-97.0); Mean Platelet Volume 11.9 fL (9.5-12.2); NRBC Per 100 WBC 0 /100 WBCS (0.0-0.0); Platelet Count 249 X 10*3/uL (140-440); RBC 4.46 X 10*6/uL (4.10-5.20); RDW 13.4 % (11.5-14.5); WBC 5.51 X 10*3/uL (4.50-10.00)
[2022-10-28 15:48] LABS: African American GFR (CKD) 78.9 (60.0-200.0); Anion Gap 12.8 mmol/L (10.00-18.00); Blood Urea Nitrogen 14.2 mg/dL (9.0-27.0); Carbon Dioxide 24.2 mmol/L (20.0-27.5); Potassium 4.4 mmol/L (3.5-5.5)
== END | disposition home or self-care (01) ==
LOC: LABPAT 08:36
PROVIDERS: ATTEND Internal Medicine Interventional Cardiology
DX: Z01.812 Encounter for preprocedural laboratory examination (principal); I34.0 Nonrheumatic mitral (valve) insufficiency; I25.10 Atherosclerotic heart disease of native coronary artery without angina pectoris
CPT/HCPCS: 36415; 80051; 82565; 84520; 85027

== ENCOUNTER → 2023-04-14 | Outpatient (CLI) | payer OTHER ==
--- NOTE | 2023-04-14 14:29 | US ---
EXAMINATION TYPE: US pelvis complete transvag DATE OF EXAM: 04/14/2023 COMPARISON: NONE CLINICAL INDICATION: Female, 63 years old with history of N84.1 POLYP OF CERVIX UTERI; TECHNIQUE: Transvaginal (TV) and Transabdominal (TA) . Transabdominal sonographic images of the pel vis were acquired. Transvaginal sonographic images were medically necessary to better assess the fol lowing anatomy: endometrium Date of LMP: postmenopausal, no HRT EXAM MEASUREMENTS: Uterus: 5.0 x 2.5 x 3.4 cm Endometrial Stripe: 0.6 cm Right Ovary: not identified Left Ovary: not identified 1. Uterus: Anteverted 0.6 x 1.1 cm calcification noted posterior uterus. 2. Endometrium: measures 0.6 cm 3. Right Ovary: not identified 4. Left Ovary: not identified 5. Bilateral Adnexa: extensive peristalsing bowel noted 6. Posterior cul-de-sac: no free fluid IMPRESSION: Myometrial calcification. Otherwise unremarkable study.
== END | disposition home or self-care (01) ==
LOC: RADUSWWP 13:27
PROVIDERS: ATTEND Family Medicine
DX: N84.1 Polyp of cervix uteri (principal); N85.8 Other specified noninflammatory disorders of uterus
CPT/HCPCS: 76830; 76856

== ENCOUNTER → 2023-06-14 | Outpatient (CLI) | payer OTHER ==
--- NOTE | 2023-06-15 08:58 | XR ---
EXAMINATION TYPE: XR chest 2V DATE OF EXAM: 06/14/2023 COMPARISON: NONE TECHNIQUE: PA and lateral views submitted. HISTORY: Cough FINDINGS: The lungs are clear and there is no pneumothorax, pleural effusion, or focal pneumonia. Heart size normal and no overt failure. Osseous structures demonstrate hypertrophic and degenerative changes of the spine. Hyperinflation compatible with COPD IMPRESSION: 1. No acute process.
== END | disposition home or self-care (01) ==
LOC: RADXRMAIN 16:03
PROVIDERS: ATTEND Nurse Practitioner Family
DX: R09.89 Other specified symptoms and signs involving the circulatory and respiratory systems (principal); R05.9 Cough, unspecified
CPT/HCPCS: 71046

== ENCOUNTER → 2023-06-28 | Outpatient (CLI) | payer OTHER ==
--- NOTE | 2023-07-01 23:31 | MM ---
Reason for Exam: Screening (asymptomatic). Last mammogram was performed 17 year(s) and 0 month(s) ago. Patient History: Menarche at age 11. Patient has no children. Postmenopausal. Maternal aunt had breast cancer, age 50. Risk Values: Rossy 5 year model risk: 1.8%. NCI Lifetime model risk: 7.2%. Prior Study Comparison: No prior studies available for comparison. Tissue Density: There are scattered fibroglandular densities. Findings: Analyzed By CAD. No significant mass, suspicious microcalcification, or other discrete abnormality is seen. Overall Assessment: Negative, BI-RAD 1 Management: Screening Mammogram of both breasts in 1 year. . Patient should continue monthly self-breast exams. A clinical breast exam by your physician is recommended on an annual basis. This exam should not preclude additional follow-up of suspicious palpable abnormalities. Note on Rossy scores and lifetime risk: 1. A Rossy score greater than 3% is considered moderate risk. If this is the case, consider specialist referral to assess eligibility for a risk reducing agent. 2. If overall lifetime risk for the development of breast cancer is 20% or higher, the patient may qualify for future screening with alternating mammogram and breast MRI. Electronically signed and approved by: Manuel Fletcher M.D. Radiologist
== END | disposition home or self-care (01) ==
LOC: RADMAMWWP 12:28
PROVIDERS: ATTEND Family Medicine
DX: Z12.31 Encounter for screening mammogram for malignant neoplasm of breast (principal); Z80.3 Family history of malignant neoplasm of breast; Z78.0 Asymptomatic menopausal state
CPT/HCPCS: 77067

== ENCOUNTER → 2024-02-21 | Outpatient (CLI) | payer OTHER | END | disposition home or self-care (01) | LOC: LABPRL 08:45 | PROVIDERS: ATTEND Nurse Practitioner Family | DX: E78.2 Mixed hyperlipidemia (principal) | CPT/HCPCS: 80061; 84450; 84460 ==

== ENCOUNTER → 2024-03-29 | Outpatient (CLI) | payer MEDICARE, OTHER ==
--- NOTE | 2024-03-29 12:57 | US ---
EXAMINATION TYPE: US arterial LE single level DATE OF EXAM: 03/29/2024 10:08 AM CLINICAL INDICATION: Female, 64 years old with history of I73.9 PVD; Pt states abnormal home health s creening, pt states weakness since stroke History of: Smoker: Previous Hypertension: Yes Diabetic: No Hyperlipidemia: Yes TIA/CVA: Yes Previous Vascular Surgery: Prev heart and brain stents CAD: Yes [place]: Yes Vascular Ulcers: No Claudication: No Gangrene: No Doppler Waveforms: Right: Multiphasic monophasic dorsalis pedis. Remaining vessels are biphasic. Left: Multiphasic. Posterior tibial dorsalis pedis arteries are monophasic Right Brachial Pressure: 114 Left Brachial Pressure: 125 Ankle-Brachial Indices: Right: 1.1 Left: 1.0 (Vessel hardening > 1.4; Normal 0.9 - 1.4, Moderate 0.7 - 0.9, Severe 0.5-0.7) IMPRESSION: 1. No suspicious stenosis based on ratios. [facility], , 03/29/2024 12:55 PM
== END | disposition home or self-care (01) ==
LOC: RADUSWWP 09:40
PROVIDERS: ATTEND Family Medicine
DX: I73.9 Peripheral vascular disease, unspecified (principal)
CPT/HCPCS: 93922